=== PATIENT | male | born 1950 | race Caucasian/White ===

== ENCOUNTER 2021-01-07 22:40 | Observation (INO) | payer MEDICARE, OTHER ==
[2021-01-07] MEDS ORDERED: Sodium Chloride 0.9% 500 ML 500 ML IV ONE ×2 (23:00→23:05)
[2021-01-07 23:08] LABS: Hematocrit 34.9 % (42-50); Mean Cell Volume 70.8 fl (78-100); Mean Corpuscular Hemoglobin 20.3 pg (26-32); Mean Corpuscular Hgb Concent. 28.7 g/dl (32-36); Mean Platelet Volume 10.3 fl (7.5-11.0); Platelet Count 372 K/mm3 (150-450); Red Blood Count 4.93 M/mm3 (4.1-5.6); Red Cell Distribution Width 17.8 % (11.5-14.0); White Blood Count 11.5 K/mm3 (4.0-10.5)
--- NOTE | 2021-01-07 23:15 | ERPHSYRPT ---
- History of Present Illness Time Seen by Provider: 01/07/21 22:42 Source: patient Exam Limitations: no limitations Patient Subjective Stated Complaint: My blood sugar is high, I just found out yesterday than I'm diabetic Triage Nursing Assessment: pt c/o blood sugar being high. Dr. Arrieta's office called him yesterday and told him it was over 500 and to go to the ER. Pt did not come to ER. He went to check it tonight and his machine said High. Pt has not been diabetic, just was notified by Dr. Arrieta's office that he's newly diagnosed with diabetes. BS checked here and was 567. Physician History: 70 years old male with history of coronary artery disease status post stenting, congestive heart failure, chronic kidney disease, hypertension, hyperlipidemia presented in the ER with chief complaint of hyperglycemia. Patient reports had routine work-up done before nephrology appointment early next week and was r ecommended to be seen in the ER has his blood sugar has been in 500 and he does not have history of diabetes mellitus and not taking any medications. Denies any chest pain palpitations or shortness of breath. No abdominal pain nausea or vomiting reported. Denies any recent steroid intake. Allergies/Adverse Reactions: No Known Drug Allergies Allergy (Verified 01/07/21 23:01) Home Medications: Atorvastatin Calcium [Lipitor] 10 mg PO HS 03/06/12 [History] Metoprolol Succinate 100 mg [Toprol Xl 100 MG] 100 mg PO QAM 03/06/12 [History] Ramipril 10 mg PO HS 03/06/12 [History] Triamterene/Hydrochlorothiazid [Triamterene-Hctz 75-50 mg Tab] 1 tab PO QAM 03/06/12 [History] PANTOPRAZOLE 40 mg Tablet [Protonix 40MG Tablet] 40 mg PO QAM 03/07/12 [History] Furosemide 40 mg [Lasix 40 MG] 40 mg PO QAM 01/21/13 [History] Potassium Chloride [Micro-K] 10 meq PO QAM 01/21/13 [History] Allopurinol 100 mg [Zyloprim 100 mg] 300 mg PO DAILY 10/25/15 [History] Hx Tetanus, Diphtheria Vaccination/Date Given: Yes Hx Influenza Vaccination/Date Given: No Hx Pneumococcal Vaccination/Date Given: No Immunizations Up to Date: Yes Travel Risk - International Travel Have you traveled outside of the country in past 3 weeks: No - Coronavirus Screening Are you exhibiting any of the following symptoms?: Yes Symptoms: Loss of Taste or Smell, Headaches/Body Aches/Fatigue Close contact with a COVID-19 positive Pt in past 14-21 Days: No - Vaccine Status Have you recieved a Covid-19 vaccination: No - Review of Systems Constitutional: No Symptoms Eyes: No Symptoms Ears, Nose, & Throat: No Symptoms Respiratory: No Symptoms Cardiac: No Symptoms Abdominal/Gastrointestinal: No Symptoms Genitourinary Symptoms: No Symptoms Musculoskeletal: No Symptoms Skin: No Symptoms Neurological: No Symptoms Psychological: No Symptoms Hematologic/Lymphatic: No Symptoms - Past Medical History Pertinent Past Medical History: Yes Neurological History: No Pertinent History ENT History: No Pertinent History Cardiac History: Coronary Artery Disease, High Cholesterol, Hypertension, Myocardial Infarction ([place]), Other Respiratory History: Bronchitis, CHF, COPD, Pneumonia, Sleep Apnea Endocrine Medical History: Diabetes Type II Musculoskeletal History: Arthritis, Fractures GI Medical History: GERD, Polyps History: Renal Disease Psycho-Social History: Depression Male Reproductive Disorders: No Pertinent History - Past Surgical History Past Surgical History: Yes Neuro Surgical History: No Pertinent History Cardiac: Cardiac Catheterization, Cardiac Stent Respiratory: No Pertinent History Gastrointestinal: No Pertinent History Genitourinary: No Pertinent History Musculoskeletal: Other Male Surgical History: No Pertinent History Other Surgical History: 2 heart stents. c4-c5 fusion with plate and cadaver bon e - Social History Smoking Status: Former smoker How long have you smoked: 50years Exposure to second hand smoke: No Drug Use: none Patient Lives Alone: Yes - Nursing Vital Signs Nursing Vital Signs: Initial Vital Signs Temperature 98.3 F 01/07/21 22:47 Pulse Rate 85 01/07/21 22:47 Respiratory Rate 22 01/07/21 22:47 Blood Pressure 110/59 01/07/21 22:47 O2 Sat by Pulse Oximetry 96 01/07/21 22:47 Pain Scale Pain Intensity 0 - Physical Exam General Appearance: no apparent distress, alert Eye Exam: PERRL/EOMI Ears, Nose, Throat Exam: normal ENT inspection, pharynx normal Neck Exam: normal inspection, supple, full range of motion Respiratory Exam: normal breath sounds, lungs clear Cardiovascular Exam: regular rate/rhythm, normal heart sounds Gastrointestinal/Abdomen Exam: soft, No tenderness Back Exam: normal inspection, normal range of motion Extremity Exam: normal inspection, normal range of motion, pelvis stable Neurologic Exam: alert, oriented x 3, cooperative Skin Exam: normal color SpO2 Interpretation: normal SpO2: 96 O2 Delivery: Room Air Ordered Tests: Active Orders 24 hr Category Date Time Status Various Exceptionalities Teacher STAT Care 01/07/21 22:59 Active IV Insertion STAT Care 01/07/21 22:59 Active CBC W DIFF Stat Lab 01/07/21 23:05 Completed CMP Stat Lab 01/07/21 23:05 Completed MAGNESIUM Stat Lab 01/07/21 23:05 Completed Manual Differential NC Stat Lab 01/07/21 23:05 Completed POCT GLUCOSE Stat Lab 01/07/21 22:49 Completed UA W/RFX UR CULTURE Stat Lab 01/07/21 23:24 Completed Medication Summary Discontinued Medications Generic Name Dose Route Start Last Admin Trade Name Freq PRN Reason Stop Dose Admin Sodium Chloride 500 mls @ 500 mls/hr 01/07/21 23:00 01/07/21 23:06 Sodium Chloride 0.9% 500 Ml IV 01/07/21 23:59 500 mls/hr .Q1H ONE Administration Sodium Chloride Confirm 01/07/21 23:05 Sodium Chloride 0.9% 500 Ml Administered 01/07/21 23:06 Dose 500 mls @ ud IV .STK-MED ONE Lab/Rad Data: Laboratory Result Diagrams 01/07/21 23:05 01/07/21 23:05 Laboratory Results 01/07/21 01/07/21 01/07/21 Range/Units 23:24 23:05 23:05 WBC 11.5 H (4.0-10.5) K/mm3 RBC 4.93 (4.1-5.6) M/mm3 Hgb 10.0 L (12.5-18.0) gm/dl Hct 34.9 L (42-50) % MCV 70.8 L (78-100) fl MCH 20.3 L (26-32) pg MCHC 28.7 L (32-36) g/dl RDW 17.8 H (11.5-14.0) % Plt Count 372 (150-450) K/mm3 MPV 10.3 (7.5-11.0) fl Sodium 126 L (137-145) mmol/L Potassium 5.1 D (3.5-5.1) mmol/L Chloride 86 L (98-107) mmol/L Carbon Dioxide 28 (22-30) mmol/L Anion Gap 17.5 H (5-15) MEQ/L BUN 47 H (9-20) mg/dL Creatinine 1.85 H (0.66-1.25) mg/dL Estimated GFR 38.7 ML/MIN Glucose 557 H* (74-106) mg/dL POC Glucometer (50 to 500) mg/dL Calcium 8.6 (8.4-10.2) mg/dL Magnesium 1.7 (1.6-2.3) mg/dL Total Bilirubin 0.80 (0.2-1.3) mg/dL AST 64 H (17-59) U/L ALT 25 (0-50) U/L Alkaline Phosphatase 111 (38-126) U/L Serum Total Protein 7.6 (6.3-8.2) g/dL Albumin 3.9 (3.5-5.0) g/dL Urine Color STRAW (YELLOW) Urine Appearance CLEAR (CLEAR) Urine pH 6.0 (5-6) Ur Specific [place] 1.011 (1.005-1.025) Urine Protein NEGATIVE (Negative) Urine Ketones NEGATIVE (NEGATIVE) Urine Blood NEGATIVE (0-5) Randy/ul Urine Nitrite NEGATIVE (NEGATIVE) Urine Bilirubin NEGATIVE (NEGATIVE) Urine Urobilinogen NEGATIVE (0-1) mg/dL Ur Leukocyte Esterase NEGATIVE (NEGATIVE) Urine WBC (Auto) NONE (0-5) /HPF Urine RBC (Auto) NONE (0-2) /HPF U Epithel Cells (Auto) NONE (FEW) /HPF Urine Bacteria (Auto) NONE SEEN (NEGATIVE) /HPF Urine Culture Reflexed NO (NO) Urine Glucose >=500 (NEGATIVE) mg/dL 01/07/21 Range/Units 22:49 WBC (4.0-10.5) K/mm3 RBC (4.1-5.6) M/mm3 Hgb (12.5-18.0) gm/dl Hct (42-50) % MCV (78-100) fl MCH (26-32) pg MCHC (32-36) g/dl RDW (11.5-14.0) % Plt Count (150-450) K/mm3 MPV (7.5-11.0) fl Sodium (137-145) mmol/L Potassium (3.5-5.1) mmol/L Chloride (98-107) mmol/L Carbon Dioxide (22-30) mmol/L Anion Gap (5-15) MEQ/L BUN (9-20) mg/dL Creatinine (0.66-1.25) mg/dL Estimated GFR ML/MIN Glucose (74-106) mg/dL POC Glucometer 567 H* (50 to 500) mg/dL Calcium (8.4-10.2) mg/dL Magnesium (1.6-2.3) mg/dL Total Bilirubin (0.2-1.3) mg/dL AST (17-59) U/L ALT (0-50) U/L Alkaline Phosphatase (38-126) U/L Serum Total Protein (6.3-8.2) g/dL Albumin (3.5-5.0) g/dL Urine Color (YELLOW) Urine Appearance (CLEAR) Urine pH (5-6) Ur Specific [place] (1.005-1.025) Urine Protein (Negative) Urine Ketones (NEGATIVE) Urine Blood (0-5) Randy/ul Urine Nitrite (NEGATIVE) Urine Bilirubin (NEGATIVE) Urine Urobilinogen (0-1) mg/dL Ur Leukocyte Esterase (NEGATIVE) Urine WBC (Auto) (0-5) /HPF Urine RBC (Auto) (0-2) /HPF U Epithel Cells (Auto) (FEW) /HPF Urine Bacteria (Auto) (NEGATIVE) /HPF Urine Culture Reflexed (NO) Urine Glucose (NEGATIVE) mg/dL - Progress Progress: unchanged Progress Note: 01/08/21 00:36 70 years old is evaluated for hyperglycemia with new onset diabetes mellitus and not taking any medications. Patient is asymptomatic otherwise. Work-up showed blood sugar in 550s with mildly elevated gap and normal bicarb and no ketones in urine. Is given small fluid bolus and 10 units of IV insulin. Patient discussed with Dr. Vargas and is being admitted for new onset diabetes mellitus management, education, of further testing and to be started on some medications. Plan discussed with patient who understand and agrees with it. Discussed with : Ryan Will see patient in: hospital (observation) Counseled pt/family regarding: lab results, diagnosis - Departure Departure Disposition: Observation Clinical Impression: Diabetes mellitus, new onset Condition: Stable Critical Care Time: No Referrals: CHON LINCOLN [Primary Care Provider] -
[2021-01-07 23:22] LABS: ALBUMIN 3.9 g/dL (3.5-5.0); ANION GAP 17.5 MEQ/L (5-15); BILIRUBIN,TOTAL 0.8 mg/dL (0.2-1.3); Calcium 8.6 mg/dL (8.4-10.2); Creatinine 1 1.85 mg/dL (0.66-1.25); EST GLOMERULAR FILTRATION RATE 38.7 ML/MIN; MAGNESIUM 1.7 mg/dL (1.6-2.3); Potassium 5.1 mmol/L (3.5-5.1); Total Protein 7.6 g/dL (6.3-8.2)
[2021-01-07 23:36] LABS: Appearance CLEAR (CLEAR); Bilirubin NEGATIVE (NEGATIVE); Blood NEGATIVE Ery/ul (0-5); Glucose >=500 mg/dL (NEGATIVE); Ketones NEGATIVE (NEGATIVE); Leukocyte Esterase NEGATIVE (NEGATIVE); Nitrite NEGATIVE (NEGATIVE); Protein,Urine Dip NEGATIVE (Negative); Specific Gravity 1.011 (1.005-1.025); Urobilinogen NEGATIVE mg/dL (0-1)
[2021-01-07 23:45] LABS: Bacteria NONE SEEN /HPF (NEGATIVE)
[2021-01-08] MEDS ORDERED: HUMULIN R IV ONE ×3 (00:34→01:37)
[2021-01-08] MEDS ORDERED: HUMULIN R ONE ×2 (00:35→01:39)
[2021-01-08 01:30] LABS: BAND 1 % (0.0-2.0); Basophil 1 % (0.0-1.0); Hypochromia 2+; Lymphocytes 18 % (24-44); Monocyte 8 % (0.0-12.0); Neutrophils 72 % (36.-66.); Platelet Estimate NORMAL (NORMAL); Polychromasia 1+; Total Cells Counted 100
[2021-01-08] MEDS ORDERED: DUONEB 0.5-3 MG/3 ml Neb IH PRN (01:44)
[2021-01-08] MEDS ORDERED: TYLENOL 325 MG PO PRN (01:44)
[2021-01-08] MEDS: HUMALOG SQ PRN ×5 (04:10→20:25)
[2021-01-08] MEDS: Advair Hfa 115/21 Common canister IH SCH ×2 (05:57→18:39)
[2021-01-08 06:04] LABS: Absolute Neutrophil Ct (ANC) 7.37 (1.4-6.9); BASOPHIL % 0.5 % (0.0-0.4); Basophil (Absolute #) 0.05 (0-0.4); Eosinophil % 0.6 % (0.00-5.0); Eosinophil (Absolute #) 0.06 (0-0.5); Hematocrit 34.5 % (42-50); Hemoglobin 9.9 gm/dl (12.5-18.0); Lymphocyte (Absolute #) 2.06 (1.0-4.6); Lymphocytes % 19.7 % (24.0-44.0); Mean Cell Volume 70.8 fl (78-100); Mean Corpuscular Hemoglobin 20.3 pg (26-32); Mean Corpuscular Hgb Concent. 28.7 g/dl (32-36); Mean Platelet Volume 10.2 fl (7.5-11.0); Monocyte (Absolute #) 0.94 (0.0-1.3); Neutrophil % 70.2 % (36.0-66.0); Platelet Count 353 K/mm3 (150-450); Red Blood Count 4.87 M/mm3 (4.1-5.6); Red Cell Distribution Width 17.7 % (11.5-14.0); White Blood Count 10.5 K/mm3 (4.0-10.5)
[2021-01-08 06:34] LABS: Creatinine 1 1.71 mg/dL (0.66-1.25); EST GLOMERULAR FILTRATION RATE 42.4 ML/MIN; Potassium 3.5 mmol/L (3.5-5.1)
[2021-01-08 06:35] LABS: ALBUMIN 3.6 g/dL (3.5-5.0); ANION GAP 12.9 MEQ/L (5-15); BILIRUBIN,TOTAL 0.4 mg/dL (0.2-1.3); Calcium 8.8 mg/dL (8.4-10.2)
[2021-01-08 08:03] LABS: BAND 1 % (0.0-2.0); Eosinophil 3 % (0.00-3.0); Lymphocytes 22 % (24-44); Monocyte 7 % (0.0-12.0); Neutrophils 67 % (36.-66.); Platelet Estimate NORMAL (NORMAL); Total Cells Counted 100
[2021-01-08 08:04] LABS: ANISOCYTOSIS 1+; Hypochromia 1+
[2021-01-08] MEDS: PROTONIX 40 MG IV IV SCH (09:47)
[2021-01-08] MEDS: BUMEX 1 MG PO SCH (11:26)
[2021-01-08] MEDS: hydroDIURIL 25 MG PO SCH (11:27)
[2021-01-08] MEDS: Toprol Xl 50 MG PO SCH (11:27)
[2021-01-08] MEDS: Aldactone 25 MG PO SCH (11:27)
[2021-01-08] MEDS: NORVASC 5 MG PO SCH (11:28)
[2021-01-08] MEDS: Glucotrol Xl 10 MG PO SCH ×2 (11:28→17:17)
[2021-01-08] MEDS ORDERED: MEDICATION INTERVENTION MC SCH ×2 (11:45)
--- NOTE | 2021-01-08 14:09 | PCM.HP ---
History of Present Illness - Chief Complaint Chief Complaint: New Onset Diabete Mellitus. History of Present Illness: is a 70 year old male pt of Dr. Monae with chronic renal failure, CAD with stents, CHF, HTN , COPD (on 3L O2) and hyperlipidemia who was admitted through ER with new dx of diabetes and BS 567. He had routine labs for an upcoming appointment with Dr. Arrieta last week, and pt was called with BS > 500. He did not go to ER at that time; went yesterday after a home meter read "HI." Has been having thirst/polyuria lately. No weight loss. Dizziness with standing. - Review of Systems Respiratory: Short Of Breath (chronic) Cardiac: Edema (chronic) Neurological: Dizziness, Parasthesia (tingling legs bilat for quite some time, he's unsure if it's 1 year; worse lately.) Psychological: Depression, No Suicidal Ideations, No Homicidal Ideations Medications & Allergies Home Medications: Home Medication List Amlodipine Besylate 5 mg [Norvasc 5 mg] 5 mg PO DAILY 01/08/21 [History Confirmed 01/08/21] Atorvastatin Calcium 10 mg PO HS 01/08/21 [History Confirmed 01/08/21] Bumetanide 2 mg PO BID 01/08/21 [History Confirmed 01/08/21] Fluticasone/Umeclidin/Vilanter [Trelegy Ellipta 100-62.5-25] 1 puff IH DAILY 01/08/21 [History Confirmed 01/08/21] Metoprolol Succinate 50 mg [Toprol Xl 50 MG] 50 mg PO DAILY 01/08/21 [History Confirmed 01/08/21] Sildenafil Citrate [Sildenafil] 20 mg PO DAILY 01/08/21 [History Confirmed 01/08/21] Spironolact/Hydrochlorothiazid [Spironolactone-Hctz 25-25 Tab] 1 tablet PO DAILY 01/08/21 [History Confirmed 01/08/21] Allergies/Adverse Reactions: Allergies Allergy/AdvReac Type Severity Reaction Status Date / Time No Known Drug Allergies Allergy Verified 01/07/21 23:01 - Past Medical History Past Medical History: Yes Neurological History: No Pertinent History ENT History: No Pertinent History Cardiac History: Congestive Heart Failure, Coronary Artery Disease, Hypertension, Myocardial Infarction ([place]) Respiratory History: Asthma, CHF, COPD, Pneumonia Endocrine Medical History: Diabetes Type II Musculoskelatal History: Arthritis GI Medical History: Diverticulitis, GERD, Polyps History: Renal Disease Pyscho-Social History: Anxiety, Depression Male Reproductive Disorders: No Pertinent History - Past Surgical History Past Surgical History: Yes Neuro Surgical History: No Pertinent History Cardiac History: Cardiac Catheterization, Cardiac Stent Respiratory Surgery: No Pertinent History GI Surgical History: No Pertinent History Genitourinary Surgical Hx: No Pertinent History Musculskeletal Surgical Hx: No Pertinent History Male Surgical History: No Pertinent History Other Surgical History: 2 heart stents. c4-c5 fusion with plate and cadaver bone - Social History Smoking Status: Former smoker How long have you smoked: 50years Exposure to second hand smoke: No Alcohol: None Drug Use: none - Physical Exam Vital Signs: Vital Signs - 24 hr Temp Pulse Resp BP Pulse Ox 01/08/21 11:29 97.6 F 93 H 16 127/69 93 L 01/08/21 07:08 97.9 F 77 16 116/56 92 L 01/08/21 05:55 71 20 95 01/08/21 04:05 95/45 01/08/21 04:00 97.5 F 80 20 119/57 98 01/08/21 02:45 77 18 95 01/08/21 02:36 97.9 F 80 20 117/56 96 01/08/21 01:00 77 20 110/61 99 01/08/21 00:37 96 01/08/21 00:00 78 20 102/53 99 01/07/21 22:47 98.3 F 85 22 110/59 96 General Appearance: no apparent distress, alert, obese Neurologic Exam: oriented x 3, cooperative Results - Labs Lab/Micro Results: Lab Results-Last 24 Hours 01/07/21 01/07/21 01/07/21 Range/Units 22:49 23:05 23:05 WBC 11.5 H (4.0-10.5) K/mm3 RBC 4.93 (4.1-5.6) M/mm3 Hgb 10.0 L (12.5-18.0) gm/dl Hct 34.9 L (42-50) % MCV 70.8 L (78-100) fl MCH 20.3 L (26-32) pg MCHC 28.7 L (32-36) g/dl RDW 17.8 H (11.5-14.0) % Plt Count 372 (150-450) K/mm3 MPV 10.3 (7.5-11.0) fl Gran % (36.0-66.0) % Eos # (Auto) (0-0.5) Absolute Lymphs (auto) (1.0-4.6) Absolute Monos (auto) (0.0-1.3) Lymphocytes % (24.0-44.0) % Monocytes % (0.0-12.0) % Eosinophils % (0.00-5.0) % Basophils % (0.0-0.4) % Absolute Granulocytes (1.4-6.9) Segmented Neutrophils 72 H (36.-66.) % Band Neutrophils 1 (0.0-2.0) % Lymphocytes (Manual) 18 L (24-44) % Monocytes (Manual) 8 (0.0-12.0) % Eosinophils (Manual) (0.00-3.0) % Basophils (Manual) 1 (0.0-1.0) % Basophils # (0-0.4) Hypochromia 2+ Platelet Estimate NORMAL (NORMAL) RBC Morphology ABNORMAL Polychromasia 1+ Anisocytosis Sodium 126 L (137-145) mmol/L Potassium 5.1 D (3.5-5.1) mmol/L Chloride 86 L (98-107) mmol/L Carbon Dioxide 28 (22-30) mmol/L Anion Gap 17.5 H (5-15) MEQ/L BUN 47 H (9-20) mg/dL Creatinine 1.85 H (0.66-1.25) mg/dL Estimated GFR 38.7 ML/MIN Glucose 557 H* (74-106) mg/dL POC Glucometer 567 H* (50 to 500) mg/dL Hemoglobin A1c (4.5-6.0) % Calcium 8.6 (8.4-10.2) mg/dL Magnesium 1.7 (1.6-2.3) mg/dL Total Bilirubin 0.80 (0.2-1.3) mg/dL AST 64 H (17-59) U/L ALT 25 (0-50) U/L Alkaline Phosphatase 111 (38-126) U/L Serum Total Protein 7.6 (6.3-8.2) g/dL Albumin 3.9 (3.5-5.0) g/dL Urine Color (YELLOW) Urine Appearance (CLEAR) Urine pH (5-6) Ur Specific [place] (1.005-1.025) Urine Protein (Negative) Urine Ketones (NEGATIVE) Urine Blood (0-5) Randy/ul Urine Nitrite (NEGATIVE) Urine Bilirubin (NEGATIVE) Urine Urobilinogen (0-1) mg/dL Ur Leukocyte Esterase (NEGATIVE) Urine WBC (Auto) (0-5) /HPF Urine RBC (Auto) (0-2) /HPF U Epithel Cells (Auto) (FEW) /HPF Urine Bacteria (Auto) (NEGATIVE) /HPF Urine Culture Reflexed (NO) Urine Glucose (NEGATIVE) mg/dL SARS-CoV-2 (PCR) (NEGATIVE) 01/07/21 01/08/21 01/08/21 Range/Units 23:24 00:00 00:50 WBC (4.0-10.5) K/mm3 RBC (4.1-5.6) M/mm3 Hgb (12.5-18.0) gm/dl Hct (42-50) % MCV (78-100) fl MCH (26-32) pg MCHC (32-36) g/dl RDW (11.5-14.0) % Plt Count (150-450) K/mm3 MPV (7.5-11.0) fl Gran % (36.0-66.0) % Eos # (Auto) (0-0.5) Absolute Lymphs (auto) (1.0-4.6) Absolute Monos (auto) (0.0-1.3) Lymphocytes % (24.0-44.0) % Monocytes % (0.0-12.0) % Eosinophils % (0.00-5.0) % Basophils % (0.0-0.4) % Absolute Granulocytes (1.4-6.9) Segmented Neutrophils (36.-66.) % Band Neutrophils (0.0-2.0) % Lymphocytes (Manual) (24-44) % Monocytes (Manual) (0.0-12.0) % Eosinophils (Manual) (0.00-3.0) % Basophils (Manual) (0.0-1.0) % Basophils # (0-0.4) Hypochromia Platelet Estimate (NORMAL) RBC Morphology Polychromasia Anisocytosis Sodium (137-145) mmol/L Potassium (3.5-5.1) mmol/L Chloride (98-107) mmol/L Carbon Dioxide (22-30) mmol/L Anion Gap (5-15) MEQ/L BUN (9-20) mg/dL Creatinine (0.66-1.25) mg/dL Estimated GFR ML/MIN Glucose (74-106) mg/dL POC Glucometer (50 to 500) mg/dL Hemoglobin A1c > 14.00 H (4.5-6.0) % Calcium (8.4-10.2) mg/dL Magnesium (1.6-2.3) mg/dL Total Bilirubin (0.2-1.3) mg/dL AST (17-59) U/L ALT (0-50) U/L Alkaline Phosphatase (38-126) U/L Serum Total Protein (6.3-8.2) g/dL Albumin (3.5-5.0) g/dL Urine Color STRAW (YELLOW) Urine Appearance CLEAR (CLEAR) Urine pH 6.0 (5-6) Ur Specific [place] 1.011 (1.005-1.025) Urine Protein NEGATIVE (Negative) Urine Ketones NEGATIVE (NEGATIVE) Urine Blood NEGATIVE (0-5) Randy/ul Urine Nitrite NEGATIVE (NEGATIVE) Urine Bilirubin NEGATIVE (NEGATIVE) Urine Urobilinogen NEGATIVE (0-1) mg/dL Ur Leukocyte Esterase NEGATIVE (NEGATIVE) Urine WBC (Auto) NONE (0-5) /HPF Urine RBC (Auto) NONE (0-2) /HPF U Epithel Cells (Auto) NONE (FEW) /HPF Urine Bacteria (Auto) NONE SEEN (NEGATIVE) /HPF Urine Culture Reflexed NO (NO) Urine Glucose >=500 (NEGATIVE) mg/dL SARS-CoV-2 (PCR) NEGATIVE (NEGATIVE) 01/08/21 01/08/21 01/08/21 Range/Units 01:33 03:22 05:24 WBC (4.0-10.5) K/mm3 RBC (4.1-5.6) M/mm3 Hgb (12.5-18.0) gm/dl Hct (42-50) % MCV (78-100) fl MCH (26-32) pg MCHC (32-36) g/dl RDW (11.5-14.0) % Plt Count (150-450) K/mm3 MPV (7.5-11.0) fl Gran % (36.0-66.0) % Eos # (Auto) (0-0.5) Absolute Lymphs (auto) (1.0-4.6) Absolute Monos (auto) (0.0-1.3) Lymphocytes % (24.0-44.0) % Monocytes % (0.0-12.0) % Eosinophils % (0.00-5.0) % Basophils % (0.0-0.4) % Absolute Granulocytes (1.4-6.9) Segmented Neutrophils (36.-66.) % Band Neutrophils (0.0-2.0) % Lymphocytes (Manual) (24-44) % Monocytes (Manual) (0.0-12.0) % Eosinophils (Manual) (0.00-3.0) % Basophils (Manual) (0.0-1.0) % Basophils # (0-0.4) Hypochromia Platelet Estimate (NORMAL) RBC Morphology Polychromasia Anisocytosis Sodium (137-145) mmol/L Potassium (3.5-5.1) mmol/L Chloride (98-107) mmol/L Carbon Dioxide (22-30) mmol/L Anion Gap (5-15) MEQ/L BUN (9-20) mg/dL Creatinine (0.66-1.25) mg/dL Estimated GFR ML/MIN Glucose (74-106) mg/dL POC Glucometer 471 H 414 H 334 H (50 to 500) mg/dL Hemoglobin A1c (4.5-6.0) % Calcium (8.4-10.2) mg/dL Magnesium (1.6-2.3) mg/dL Total Bilirubin (0.2-1.3) mg/dL AST (17-59) U/L ALT (0-50) U/L Alkaline Phosphatase (38-126) U/L Serum Total Protein (6.3-8.2) g/dL Albumin (3.5-5.0) g/dL Urine Color (YELLOW) Urine Appearance (CLEAR) Urine pH (5-6) Ur Specific [place] (1.005-1.025) Urine Protein (Negative) Urine Ketones (NEGATIVE) Urine Blood (0-5) Randy/ul Urine Nitrite (NEGATIVE) Urine Bilirubin (NEGATIVE) Urine Urobilinogen (0-1) mg/dL Ur Leukocyte Esterase (NEGATIVE) Urine WBC (Auto) (0-5) /HPF Urine RBC (Auto) (0-2) /HPF U Epithel Cells (Auto) (FEW) /HPF Urine Bacteria (Auto) (NEGATIVE) /HPF Urine Culture Reflexed (NO) Urine Glucose (NEGATIVE) mg/dL SARS-CoV-2 (PCR) (NEGATIVE) 01/08/21 01/08/21 01/08/21 Range/Units 05:27 05:27 07:25 WBC 10.5 (4.0-10.5) K/mm3 RBC 4.87 (4.1-5.6) M/mm3 Hgb 9.9 L (12.5-18.0) gm/dl Hct 34.5 L (42-50) % MCV 70.8 L (78-100) fl MCH 20.3 L (26-32) pg MCHC 28.7 L (32-36) g/dl RDW 17.7 H (11.5-14.0) % Plt Count 353 (150-450) K/mm3 MPV 10.2 (7.5-11.0) fl Gran % 70.2 H (36.0-66.0) % Eos # (Auto) 0.06 (0-0.5) Absolute Lymphs (auto) 2.06 (1.0-4.6) Absolute Monos (auto) 0.94 (0.0-1.3) Lymphocytes % 19.7 L (24.0-44.0) % Monocytes % 9.0 (0.0-12.0) % Eosinophils % 0.6 (0.00-5.0) % Basophils % 0.5 (0.0-0.4) % Absolute Granulocytes 7.37 H (1.4-6.9) Segmented Neutrophils 67 H (36.-66.) % Band Neutrophils 1 (0.0-2.0) % Lymphocytes (Manual) 22 L (24-44) % Monocytes (Manual) 7 (0.0-12.0) % Eosinophils (Manual) 3 (0.00-3.0) % Basophils (Manual) (0.0-1.0) % Basophils # 0.05 (0-0.4) Hypochromia 1+ Platelet Estimate NORMAL (NORMAL) RBC Morphology ABNORMAL Polychromasia Anisocytosis 1+ Sodium 128 L (137-145) mmol/L Potassium 3.5 D (3.5-5.1) mmol/L Chloride 88 L (98-107) mmol/L Carbon Dioxide 31 H (22-30) mmol/L Anion Gap 12.9 (5-15) MEQ/L BUN 40 H (9-20) mg/dL Creatinine 1.71 H (0.66-1.25) mg/dL Estimated GFR 42.4 ML/MIN Glucose 333 H (74-106) mg/dL POC Glucometer 290 H (50 to 500) mg/dL Hemoglobin A1c (4.5-6.0) % Calcium 8.8 (8.4-10.2) mg/dL Magnesium (1.6-2.3) mg/dL Total Bilirubin 0.40 (0.2-1.3) mg/dL AST 20 (17-59) U/L ALT 20 (0-50) U/L Alkaline Phosphatase 111 (38-126) U/L Serum Total Protein 7.0 (6.3-8.2) g/dL Albumin 3.6 (3.5-5.0) g/dL Urine Color (YELLOW) Urine Appearance (CLEAR) Urine pH (5-6) Ur Specific [place] (1.005-1.025) Urine Protein (Negative) Urine Ketones (NEGATIVE) Urine Blood (0-5) Randy/ul Urine Nitrite (NEGATIVE) Urine Bilirubin (NEGATIVE) Urine Urobilinogen (0-1) mg/dL Ur Leukocyte Esterase (NEGATIVE) Urine WBC (Auto) (0-5) /HPF Urine RBC (Auto) (0-2) /HPF U Epithel Cells (Auto) (FEW) /HPF Urine Bacteria (Auto) (NEGATIVE) /HPF Urine Culture Reflexed (NO) Urine Glucose (NEGATIVE) mg/dL SARS-CoV-2 (PCR) (NEGATIVE) 01/08/21 Range/Units 11:27 WBC (4.0-10.5) K/mm3 RBC (4.1-5.6) M/mm3 Hgb (12.5-18.0) gm/dl Hct (42-50) % MCV (78-100) fl MCH (26-32) pg MCHC (32-36) g/dl RDW (11.5-14.0) % Plt Count (150-450) K/mm3 MPV (7.5-11.0) fl Gran % (36.0-66.0) % Eos # (Auto) (0-0.5) Absolute Lymphs (auto) (1.0-4.6) Absolute Monos (auto) (0.0-1.3) Lymphocytes % (24.0-44.0) % Monocytes % (0.0-12.0) % Eosinophils % (0.00-5.0) % Basophils % (0.0-0.4) % Absolute Granulocytes (1.4-6.9) Segmented Neutrophils (36.-66.) % Band Neutrophils (0.0-2.0) % Lymphocytes (Manual) (24-44) % Monocytes (Manual) (0.0-12.0) % Eosinophils (Manual) (0.00-3.0) % Basophils (Manual) (0.0-1.0) % Basophils # (0-0.4) Hypochromia Platelet Estimate (NORMAL) RBC Morphology Polychromasia Anisocytosis Sodium (137-145) mmol/L Potassium (3.5-5.1) mmol/L Chloride (98-107) mmol/L Carbon Dioxide (22-30) mmol/L Anion Gap (5-15) MEQ/L BUN (9-20) mg/dL Creatinine (0.66-1.25) mg/dL Estimated GFR ML/MIN Glucose (74-106) mg/dL POC Glucometer 434 H (50 to 500) mg/dL Hemoglobin A1c (4.5-6.0) % Calcium (8.4-10.2) mg/dL Magnesium (1.6-2.3) mg/dL Total Bilirubin (0.2-1.3) mg/dL AST (17-59) U/L ALT (0-50) U/L Alkaline Phosphatase (38-126) U/L Serum Total Protein (6.3-8.2) g/dL Albumin (3.5-5.0) g/dL Urine Color (YELLOW) Urine Appearance (CLEAR) Urine pH (5-6) Ur Specific [place] (1.005-1.025) Urine Protein (Negative) Urine Ketones (NEGATIVE) Urine Blood (0-5) Randy/ul Urine Nitrite (NEGATIVE) Urine Bilirubin (NEGATIVE) Urine Urobilinogen (0-1) mg/dL Ur Leukocyte Esterase (NEGATIVE) Urine WBC (Auto) (0-5) /HPF Urine RBC (Auto) (0-2) /HPF U Epithel Cells (Auto) (FEW) /HPF Urine Bacteria (Auto) (NEGATIVE) /HPF Urine Culture Reflexed (NO) Urine Glucose (NEGATIVE) mg/dL SARS-CoV-2 (PCR) (NEGATIVE) Accuchecks Date 01/08/21 Date 01/08/21 Time 11:30 Time 07:29 - Other Procedures and Tests Respiratory Therapy 01/08/21 01:44 Oxygen Nasal Cannula 3 lpm 01/08/21 02:56 Respiratory Therapy Assessment DAILY Assessment/Plan (1) Diabetes mellitus, new onset Current Visit: Yes Status: Acute Assessment & Plan: A1c is >14. I discussed that with his BS this high, he will probably need to remain on insulin. He is resistant to the idea. Did mention an insulin pump as an alternative to giving himself injections. Would like dietary to provide consultation about diabetic diet. He is currently on sliding scale, low dose. Will see how much he requires over the next 24 hours, then could use 1/2 of that as a daily lantus dose. I went ahead and started po sulfonylurea as I think sending him home on insulin may be difficult due to his resistance. Code(s): E11.9 - TYPE 2 DIABETES MELLITUS WITHOUT COMPLICATIONS (2) Chronic renal failure Current Visit: Yes Status: Chronic Qualifiers: Chronic kidney disease stage: stage 3 (moderate) Chronic kidney disease stage 3 subtype: stage 3b (GFR 30-44) Qualified Code(s): N18.32 - Chronic kidney disease, stage 3b (3) COPD (chronic obstructive pulmonary disease) Current Visit: Yes Status: Chronic Qualifiers: COPD type: unspecified COPD Qualified Code(s): J44.9 - Chronic obstructive pulmonary disease, unspecified (4) CAD (coronary artery disease) Current Visit: Yes Status: Chronic Qualifiers: Coronary Disease-Associated Artery/Lesion type: [place] artery [place] vs. transplanted heart: [place] heart Associated angina: without angina Qualified Code(s): I25.10 - Atherosclerotic heart disease of [place] coronary artery without angina pectoris Code(s): I25.10 - ATHSCL HEART DISEASE OF [place] CORONARY ARTERY W/O ANG PCTRS (5) CHF (congestive heart failure) Current Visit: Yes Status: Chronic Qualifiers: Heart failure type: systolic Heart failure chronicity: chronic Qualified Code(s): I50.22 - Chronic systolic (congestive) heart failure Code(s): I50.9 - HEART FAILURE, UNSPECIFIED (6) HTN (hypertension) Current Visit: Yes Status: Chronic Qualifiers: Hypertension type: primary hypertension Qualified Code(s): I10 - Essential (primary) hypertension Code(s): I10 - ESSENTIAL (PRIMARY) HYPERTENSION (7) Hyperlipidemia Current Visit: Yes Status: Chronic Qualifiers: Hyperlipidemia type: unspecified Qualified Code(s): E78.5 - Hyperlipidemia, unspecified Assessment & Plan: Will check lipid panel in a.m. Code(s): E78.5 - HYPERLIPIDEMIA, UNSPECIFIED (8) Chronic hypoxemic respiratory failure Current Visit: Yes Status: Chronic Assessment & Plan: Pt says he is on 3L O2 at home.
[2021-01-08] MEDS ORDERED: NON-FORMULARY ITEM (Bumetanide [Bumetanide] 2 MG Tablet) PO SCH (22:00)
[2021-01-09] MEDS: BUMEX 1 MG PO SCH ×2 (00:35→09:16)
[2021-01-09] MEDS: Advair Hfa 115/21 Common canister IH SCH ×2 (07:21→18:08)
[2021-01-09] MEDS: HUMALOG SQ PRN ×4 (08:17→20:36)
[2021-01-09] MEDS: Glucotrol Xl 10 MG PO SCH ×2 (08:17→20:05)
[2021-01-09] MEDS: PROTONIX 40 MG IV IV SCH (09:15)
[2021-01-09] MEDS: NORVASC 5 MG PO SCH (09:16)
[2021-01-09] MEDS: hydroDIURIL 25 MG PO SCH (09:16)
[2021-01-09] MEDS: Toprol Xl 50 MG PO SCH (09:16)
[2021-01-09] MEDS: Aldactone 25 MG PO SCH (09:16)
[2021-01-09] MEDS ORDERED: NON-FORMULARY ITEM (Sildenafil Citrate [Sildenafil Citrate] 20 MG Tablet) PO SCH (10:00)
[2021-01-09] MEDS ORDERED: NON-FORMULARY ITEM (Fluticasone/Umeclidin/Vilanter [Trelegy Ellipta 100-62.5-25] 1 EACH Bl IH SCH (10:00)
--- NOTE | 2021-01-09 13:17 | HP ---
CHIEF COMPLAINT: Elevated blood sugars. HISTORY OF PRESENT ILLNESS: The patient is a 70-year-old white male patient who presented to the emergency room after being called by his blending kettle tender and was told that his sugars were 567. The patient has not seen me in the last three years but has been following Dr. Arrieta over that time frame to get reduction in his glomerular filtration rate. The patient previously had no knowledge of being diabetic. The last lab three years ago showed his sugar was 108 fasting. The patient reports he just has not been feeling well over the past several months. He does have a great amount of thirst and urine output on a regular basis. PAST MEDICAL/SURGICAL HISTORY: He also has previous history of hypertension, hyperlipidemia and chronic obstructive pulmonary disease. He previously had two heart stents and C4-5 fusion with plates and cadaver bone. HOME MEDICATIONS: Amlodipine 5 mg daily, atorvastatin 10 mg daily, Bumex 2 mg twice a day, Trelegy Ellipta 1 puff daily, metoprolol XL 50 mg daily, Sildenafil 20 mg,. Spironolactone 25 mg daily. ALLERGIES: NKDA. PHYSICAL EXAMINATION: The patient appears to be in good state of health presently. His most recent vital signs are not on the chart record for review. HEENT: Normocephalic, atraumatic. Pupils equal round reactive to light. Extraocular movements intact. Oropharynx is slightly dry. NECK: Supple without lymphadenopathy, thyromegaly or JVD. CHEST: Clear to auscultation bilaterally. HEART: Regular rate and rhythm without murmurs, rubs or gallops. ABDOMEN: Soft. No palpable masses. EXTREMITIES: Without cyanosis, clubbing or edema. NEUROLOGIC: The patient is alert and oriented x3 with no focal deficits. LAB DATA AND TESTS: The patient's lab studies in the emergency room showed white count of 11.5, hemoglobin 10.0 with hypochromic microcytic indices and PLT count of 372,000. His urine specific gravity was 1.011 and was otherwise normal including a glucose that has been luis f out on her chart record. A1C was over 14. ASSESSMENT: A patient with newly diagnosed diabetes mellitus type II. He has been placed initially on insulin. His sugar was down to 300-plus this morning. He will be staying for diabetic teaching, 1800 calorie ADA diet, will start him on Metformin 500 mg twice a day. If his blending kettle tender has no objections we will place him on moderate dose of sliding scale coverage with Accu-Chek's every 4 hours until his sugars are down into better range. Will continue his usual home medications otherwise.
[2021-01-09] MEDS ORDERED: Sodium Chloride 0.9% 1000 ML 1,000 ML IV SCH (18:00)
[2021-01-09] MEDS: Glucophage 500 MG PO SCH (18:16)
[2021-01-09] MEDS: Glucotrol 5 MG PO SCH (18:17)
[2021-01-09] MEDS: Klor Con 10 MEQ PO SCH (21:51)
[2021-01-10] MEDS: NON-FORMULARY ITEM PO SCH ×2 (00:13→08:51)
[2021-01-10] MEDS: HUMALOG SQ PRN ×4 (00:17→13:07)
[2021-01-10 05:26] LABS: ALBUMIN 3.7 g/dL (3.5-5.0); ANION GAP 10.3 MEQ/L (5-15); BILIRUBIN,TOTAL 0.4 mg/dL (0.2-1.3); Calcium 9.2 mg/dL (8.4-10.2); Creatinine 1 1.78 mg/dL (0.66-1.25); EST GLOMERULAR FILTRATION RATE 40.5 ML/MIN; Potassium 3.1 mmol/L (3.5-5.1); Total Protein 7.1 g/dL (6.3-8.2)
[2021-01-10] MEDS: Advair Hfa 115/21 Common canister IH SCH (07:51)
[2021-01-10] MEDS: Glucotrol 5 MG PO SCH (08:47)
[2021-01-10] MEDS: Glucophage 500 MG PO SCH (08:47)
[2021-01-10] MEDS: Toprol Xl 50 MG PO SCH (08:47)
[2021-01-10] MEDS: hydroDIURIL 25 MG PO SCH (08:50)
[2021-01-10] MEDS: NORVASC 5 MG PO SCH (08:50)
[2021-01-10] MEDS: Klor Con 10 MEQ PO SCH (08:51)
[2021-01-10] MEDS: Aldactone 25 MG PO SCH (08:51)
[2021-01-10] MEDS: PROTONIX 40 MG IV IV SCH (08:52)
--- NOTE | 2021-01-10 09:50 | CONS ---
CONSULT DATE: 01/09/2021 HISTORY: Dean Krishnamurthy is a very pleasant 70-year-old gentleman who has history of chronic kidney disease stage III. His baseline creatinine is around 1.5 to 1.7 mg%. In fact recently he had acute kidney injury and was thought to have osmotic diuresis. He had routine tests done and was noted to have a sugar of 567. He was sent to the emergency room. He was diagnosed with newly diagnosed diabetes. His blood sugar has been hovering more than 300 to 400. The patient still reports that he has not feeling well over the past several months. He was very thirsty and was having increase in urine output. He was on Bumex 2 mg twice a day which had been reduced recently. He was admitted to the hospital. A renal consultation was called for evaluation of renal dysfunction and to see whether he is a candidate for Metformin therapy or not. REVIEW OF SYSTEMS: The patient denies any nausea, vomiting or diarrhea. Excessive urination was present. Weakness was present. No chest pain. No abdominal pain. The leg swelling is stable. No dysuria. Frequent urination was present. No fall, trauma, focal weaknesses. All systems were reviewed in detail and pertinent mentioned here and in history of present illness and the rest were negative. PAST MEDICAL HISTORY: Diabetes mellitus type II recently diagnosed. Chronic obstructive pulmonary disease. Dyslipidemia. Chronic kidney disease stage 3. Low back pain. Coronary artery disease. Hypertension. Hyperkalemia. Chronic leg edema. PAST SURGICAL HISTORY: No major surgeries in the recent past. MEDICATIONS: Home medications included amlodipine 5 mg daily, atorvastatin 10 mg daily. Bumex was reduced recently, Trelegy Ellipta, metoprolol, sildenafil, Spironolactone. In hospital medications were reviewed. ALLERGIES: NKDA. PHYSICAL EXAMINATION: Reveals a gentleman lying upright on intranasal oxygen at baseline. Vital signs were reviewed. HEENT: Normocephalic, atraumatic, pink conjunctivae, nonicteric sclerae. NECK: Supple. No JVD. CHEST: Clear to auscultation. No distress. CVS: S1, S2 normal. No rub or gallop. ABDOMEN: Soft, nontender. No organomegaly. EXTREMITIES: No cyanosis or clubbing. Trace to +1 edema bilaterally. SKIN: No skin rash seen. NEUROLOGIC: Alert, awake, oriented x3. LAB DATA AND TESTS: Labs were reviewed from yesterday. No labs available today. Creatinine 1.7, glucose 333, sodium 128, potassium 3.5. ASSESSMENT: 1) Chronic kidney disease stage 3B. Creatinine of 1.7 is near baseline. Osmotic component of acute kidney injury may have been present at admission when peak creatinine was 1.85 this was because of osmotic diuresis. Renal function steadily improved. Should remain stabilized or may improve further depending on blood sugar control. I doubt any major evidence of acute kidney injury. Okay to restart Metformin. 2) Edema, stable. Given presence of osmotic diuresis we will reduce Bumex to 2 mg daily instead of b.i.d. 3) Diabetes mellitus type II (recently diagnosed). Excellent candidate for Farxiga to prevent decline in renal dysfunction, start 10 mg daily. Okay to continue Metformin. Reduce glipizide to give rest to the pancreas at 5 mg b.i.d., continue Humalog coverage. Start normal saline at 50 ml/hour. 4) Pulmonary hypertension on sildenafil 20 mg daily. 5) Hypertension well controlled, continue amlodipine 5 mg daily and Spironolactone/hydrochlorothiazide 25/25 mg daily. All questions answered.
[2021-01-10] MEDS ORDERED: BUMEX 1 MG PO SCH (10:00)
[2021-01-10 12:15] VITALS: BP 126/58; PULSE 88; O2SAT 95
== END 2021-01-10 14:16 | disposition home or self-care (01) ==
LOC: ED 22:40 → MED SURG 01-08 01:41
PROVIDERS: ADMIT Family Medicine; ATTEND Family Medicine
DX: I13.0 Hypertensive heart and chronic kidney disease with heart failure and stage 1 through stage 4 chronic kidney disease, or unspecified chronic kidney disease (principal); E11.22 Type 2 diabetes mellitus with diabetic chronic kidney disease; I50.9 Heart failure, unspecified; N18.32 Chronic kidney disease, stage 3b; I27.20 Pulmonary hypertension, unspecified; J96.11 Chronic respiratory failure with hypoxia; R42 Dizziness and giddiness; J44.9 Chronic obstructive pulmonary disease, unspecified; I25.10 Atherosclerotic heart disease of native coronary artery without angina pectoris; R20.2 Paresthesia of skin; E78.5 Hyperlipidemia, unspecified; Z79.899 Other long term (current) drug therapy; Z20.822 Contact with and (suspected) exposure to COVID-19
CPT/HCPCS: 36000; 36415; 80053; 81001; 82947; 83036; 83735; 85025; 93041; 93268; 94640; 94760; 96374; 96375; 99285; G0378; U0003; J1815; J1817; A9270-GY

== ENCOUNTER 2021-11-09 20:49 | Inpatient (IN) | payer MEDICARE, OTHER ==
[2021-11-09] MEDS ORDERED: DUONEB 0.5-3 MG/3 ml Neb IH ONE ×2 (20:57→21:00)
[2021-11-09] MEDS ORDERED: solu-MEDROL 125 MG, Sterile H2O 10 ml 2 ML IV ONE ×2 (21:06)
--- NOTE | 2021-11-09 21:12 | ERPHSYRPT ---
- History of Present Illness Time Seen by Provider: 11/09/21 21:00 Source: patient Exam Limitations: no limitations Patient Subjective Stated Complaint: pt states he has been short of breath for 6 days approx. states he feels worse today. pt has no pain just states SOB Triage Nursing Assessment: pt is alert and oriented, answers questions correct ly. pt is unable to lay flat, takes short, shallow breaths, sats are 80% on 3l O2 N.C, respiratory therapy in room to assess. Physician History: Patient is a 71-year-old male with history of COPD on home O2, congestive heart failure, cardiac stent, diabetes, chronic renal insufficiency presents to our ED with a 6-day history of progressive shortness of breath. Patient also has bilateral lower extremity pitting edema which he states is chronic. Shortness of breath has been progressive. Patient states that has gotten significantly worse over the past 24 hours. Upon arrival patient was hypoxic at 80% on 3 L. Patient normally uses 3 L at home. Patient denies pain. No nausea vomiting or diaphoresis. No diarrhea. No rash. Symptoms are progressive. Symptoms are moderate in intensity. Exertion worsens symptoms. Lying flat worsens symptoms. Patient voices no other complaints concerns at this time. Portions of this note were created with voice recognition technology. There may be grammatical, spelling, punctuation or sound alike errors Timing/Duration: day(s) (6 days) Activities at Onset: none Severity of Dyspnea-Max: moderate Severity of Dyspnea-Current: mild Possible Cause: no prior episodes Modifying Factors: Improves With: activity, lying down Associated Symptoms: ankle swelling, No chest pain/discomfort Allergies/Adverse Reactions: No Known Drug Allergies Allergy (Verified 01/07/21 23:01) Home Medications: Amlodipine Besylate 5 mg [Norvasc 5 mg] 5 mg PO DAILY 01/08/21 [History] Atorvastatin Calcium 10 mg PO HS 01/08/21 [History] Bumetanide 2 mg PO BID 01/08/21 [History] Fluticasone/Umeclidin/Vilanter [Trelegy Ellipta 100-62.5-25] 1 puff IH DAILY 01/08/21 [History] Metoprolol Succinate 50 mg [Toprol Xl 50 MG] 50 mg PO DAILY 01/08/21 [History] Sildenafil Citrate [Sildenafil] 20 mg PO DAILY 01/08/21 [History] Spironolact/Hydrochlorothiazid [Spironolactone-Hctz 25-25 Tab] 1 tablet PO DAILY 01/08/21 [History] Hx Tetanus, Diphtheria Vaccination/Date Given: Yes Hx Influenza Vaccination/Date Given: No Hx Pneumococcal Vaccination/Date Given: No Travel Risk - International Travel Have you traveled outside of the country in past 3 weeks: No - Coronavirus Screening Are you exhibiting any of the following symptoms?: No Close contact with a COVID-19 positive Pt in past 14-21 Days: No - Vaccine Status Have you recieved a Covid-19 vaccination: No - Review of Systems Constitutional: No Symptoms, No Fever, No Chills Eyes: No Symptoms Ears, Nose, & Throat: No Symptoms Respiratory: No Symptoms, No Cough, No Dyspnea Cardiac: No Symptoms, No Chest Pain, No Edema, No Syncope Abdominal/Gastrointestinal: No Symptoms, No Abdominal Pain, No Nausea, No Vomiting, No Diarrhea Genitourinary Symptoms: No Symptoms, No Dysuria Musculoskeletal: No Symptoms, No Back Pain, No Neck Pain Skin: No Symptoms, No Rash Neurological: No Symptoms, No Dizziness, No Focal Weakness, No Sensory Changes Psychological: No Symptoms Endocrine: No Symptoms Hematologic/Lymphatic: No Symptoms Immunological/Allergic: No Symptoms All Other Systems: Reviewed and Negative - Past Medical History Pertinent Past Medical History: Yes Neurological History: No Pertinent History ENT History: No Pertinent History Cardiac History: Congestive Heart Failure, Coronary Artery Disease, Hypertension, Myocardial Infarction ([place]) Respiratory History: Asthma, CHF, COPD, Pneumonia Endocrine Medical History: Diabetes Type II Musculoskeletal History: Arthritis GI Medical History: Diverticulitis, GERD, Polyps History: Renal Disease Psycho-Social History: Anxiety, Depression Male Reproductive Disorders: No Pertinent History - Past Surgical History Past Surgical History: Yes Neuro Surgical History: No Pertinent History Cardiac: Cardiac Catheterization, Cardiac Stent Respiratory: No Pertinent History Gastrointestinal: No Pertinent History Genitourinary: No Pertinent History Musculoskeletal: No Pertinent History Male Surgical History: No Pertinent History Other Surgical History: 2 heart stents. c4-c5 fusion with plate and cadaver bone - Social History Smoking Status: Former smoker How long have you smoked: 50years Exposure to second hand smoke: No Drug Use: none Patient Lives Alone: Yes - Nursing Vital Signs Nursing Vital Signs: Initial Vital Signs Temperature 97.3 F 11/09/21 20:50 Pulse Rate 79 11/09/21 20:50 Respiratory Rate 25 H 11/09/21 20:50 O2 Sat by Pulse Oximetry 80 L 11/09/21 20:50 Pain Scale Pain Intensity 0 - Physical Exam General Appearance: no apparent distress, alert, obese Eye Exam: PERRL/EOMI, eyes nml inspection Ears, Nose, Throat Exam: hearing grossly normal, normal ENT inspection, normal pharynx Neck Exam: normal inspection, supple, full range of motion Respiratory Exam: diminished breath sounds, rhonchi Cardiovascular/Chest Exam: normal heart sounds, regular rate/rhythm Abdominal/Gastrointestinal Exam: soft, No tenderness, No distention, No mass Extremity Exam: non-tender, normal range of motion, normal inspection, no calf tenderness, swelling (1+ pitting edema ) Neurologic Exam: alert, oriented x 3, cooperative, clicker operator II-XII nml as tested, sensation nml, No motor deficits Skin Exam: normal color, warm, cyanosis, No dry SpO2 Interpretation: hypoxic SpO2: 90 O2 Delivery: Nasal Cannula - Course Nursing assessment & vital signs reviewed: Yes EKG Interpreted by Me: RATE (90), Sinus Rhythm, NORMAL AXIS, NORMAL INTERVALS - Radiology Exams Chest X-ray Interpretation: Teleradiologist Report (Left middle lobe consolidation right hilar granuloma COPD changes bilateral pleural effusions left greater than right cardiomegaly intact bony thorax. Pulmonary congestion and left upper lobe patchy pneumonia) Ordered Tests: Active Orders 24 hr Category Date Time Status Pens And Pencils Repairer STAT Care 11/09/21 21:03 Active EKG-ER Only STAT Care 11/09/21 21:02 Active IV Insertion STAT Care 11/09/21 21:02 Active Pulse Oximetry (ED) STAT Care 11/09/21 21:02 Active CHEST 1 VIEW (PORTABLE) Stat Exams 11/09/21 21:19 Taken BLOOD CULTURE Stat Lab 11/09/21 23:45 Received CBC W DIFF Stat Lab 11/09/21 21:20 Completed CMP Stat Lab 11/09/21 21:20 Completed NT PRO BNP Stat Lab 11/09/21 21:20 Completed PROCALCITONIN Stat Lab 11/09/21 21:20 Completed Potassium (Lab Test) [Potassium] Stat Lab 11/09/21 23:36 Completed TROPONIN Q4H Lab 11/09/21 21:20 Completed TROPONIN Q4H Lab 11/10/21 01:15 Ordered TROPONIN Q4H Lab 11/10/21 05:15 Ordered UA W/RFX CULTURE Stat Lab 11/09/21 22:42 Completed Respiratory Therapy Assessment DAILY RT 11/09/21 21:00 Active Transfer Order Routine Transfer 11/09/21 Ordered Medication Summary Discontinued Medications Generic Name Dose Route Start Last Admin Trade Name Jagruti PRN Reason Stop Dose Admin Albuterol/Ipratropium Confirm 11/09/21 20:57 Ipratropium/Albuterol Sulfate 3 Ml Ampul.Neb Administered 11/09/21 20:58 Dose 3 ml IH .STK-MED ONE Albuterol/Ipratropium 3 ml 11/09/21 21:00 11/09/21 21:01 Ipratropium/Albuterol Sulfate 3 Ml Ampul.Neb IH 11/09/21 21:01 3 ml STAT ONE Administration Methylprednisolone Sodium 0 mg 11/09/21 21:06 11/09/21 21:15 Succinate 125 mg/ Sterile IV 11/09/21 21:07 125 mg Water 2 ml STAT ONE Administration Furosemide 40 mg 11/09/21 21:45 11/09/21 21:52 Furosemide 40 Mg/4 Ml Vial IV 11/09/21 21:46 40 mg STAT ONE Administration Furosemide Confirm 11/09/21 21:50 Furosemide 40 Mg/4 Ml Vial Administered 11/09/21 21:51 Dose 40 mg .ROUTE .STK-MED ONE Ceftriaxone Sodium/Dextrose 2 g in 50 mls @ 100 mls/hr 11/09/21 21:44 11/09/21 22:30 Rocephin 2 Gm-D5w 50ml Bag IV 11/09/21 22:13 Infused STAT STA Infusion Azithromycin 500 mg in 250 mls @ 250 mls/hr 11/09/21 21:44 11/09/21 23:48 Zithromax 500 Mg/ 250 Ml Nacl Premix IV 11/09/21 22:43 Infused STAT STA Infusion Ceftriaxone Sodium/Dextrose Confirm 11/09/21 21:50 Rocephin 2 Gm-D5w 50ml Bag Administered 11/09/21 21:51 Dose 2 g in 50 mls @ ud IV .STK-MED ONE Azithromycin Confirm 11/09/21 22:27 Zithromax 500 Mg/ 250 Ml Nacl Premix Administered 11/09/21 22:28 Dose 500 mg in 250 mls @ ud IV .STK-MED ONE Methylprednisolone Sodium Succinate Confirm 11/09/21 21:13 Methylprednis Sod Succ 125 Mg/2 Ml Vial Administered 11/09/21 21:14 Dose 125 mg .ROUTE .STK-MED ONE Sterile Water Confirm 11/09/21 21:13 Water For Injection,Sterile 10 Ml Vial Administered 11/09/21 21:14 Dose 10 ml IJ .STK-MED ONE Lab/Rad Data: Laboratory Result Diagrams 11/09/21 21:20 11/09/21 23:36 Laboratory Results 11/09/21 11/09/21 11/09/21 Range/Units 23:36 22:42 21:45 WBC (4.0-10.5) x10^3/uL RBC (4.1-5.6) x10^6/uL Hgb (12.5-18.0) g/dL Hct (42-50) % MCV (78-100) fL MCH (26-32) pg MCHC (32-36) g/dL RDW (11.5-14.0) % Plt Count (150-450) x10^3/uL MPV (7.5-11.0) fL Gran % (36.0-66.0) % Immature Gran % (Auto) (0.00-0.4) % Nucleat RBC Rel Count (0.00-0.1) % Eos # (Auto) (0-0.5) x10^3/uL Immature Gran # (Auto) (0.00-0.03) x10^3u/L Absolute Lymphs (auto) (1.0-4.6) x10^3/uL Absolute Monos (auto) (0.0-1.3) x10^3/uL Absolute Nucleated RBC (0.00-0.01) x10^3u/L Lymphocytes % (24.0-44.0) % Monocytes % (0.0-12.0) % Eosinophils % (0.00-5.0) % Basophils % (0.0-0.4) % Absolute Granulocytes (1.4-6.9) x10^3/uL Basophils # (0-0.4) x10^3/uL Sodium (137-145) mmol/L Potassium 4.9 (3.5-5.1) mmol/L Chloride (98-107) mmol/L Carbon Dioxide (22-30) mmol/L Anion Gap (5-15) MEQ/L BUN (9-20) mg/dL Creatinine (0.66-1.25) mg/dL Estimated GFR ML/MIN Glucose (74-106) mg/dL Calcium (8.4-10.2) mg/dL Total Bilirubin (0.2-1.3) mg/dL AST (17-59) U/L ALT (0-50) U/L Alkaline Phosphatase (38-126) U/L Troponin I (0.000-0.034) ng/mL NT-Pro-B Natriuret Pep (0-900) pg/mL Serum Total Protein (6.3-8.2) g/dL Albumin (3.5-5.0) g/dL Procalcitonin (0.030-0.080) ng/mL Urinalys Dipstick Clnc MAIN LAB Urine Color YELLOW (YELLOW) Urine Appearance CLEAR (CLEAR) Urine pH 5.5 (5-6) Ur Specific [place] 1.015 (1.005-1.025) POC Urine Protein Conf NEGATIVE (Negative) Urine Ketones NEGATIVE (NEGATIVE) Urine Nitrite NEGATIVE (NEGATIVE) Urine Bilirubin NEGATIVE (NEGATIVE) Urine Urobilinogen 0.2 (0-1) mg/dL Urine Leukocytes NEGATIVE (NEGATIVE) Urine WBC (Auto) NONE (0-5) /HPF Urine RBC (Auto) NONE (0-2) /HPF U Epithel Cells (Auto) NONE (FEW) /HPF Urine Bacteria (Auto) NONE (NEGATIVE) /HPF Urine RBC NEGATIVE (0-5) Randy/ul Ur Culture Indicated? NO Urine Glucose NEGATIVE (NEGATIVE) mg/dL Influenza Type A Ag NEGATIVE (NEGATIVE) Influenza Type B Ag NEGATIVE (NEGATIVE) RSV (PCR) NEGATIVE (Negative) SARS-CoV-2 (PCR) NEGATIVE (NEGATIVE) Slides for Path Review 11/09/21 11/09/21 11/09/21 Range/Units 21:20 21:20 21:20 WBC (4.0-10.5) x10^3/uL RBC (4.1-5.6) x10^6/uL Hgb (12.5-18.0) g/dL Hct (42-50) % MCV (78-100) fL MCH (26-32) pg MCHC (32-36) g/dL RDW (11.5-14.0) % Plt Count (150-450) x10^3/uL MPV (7.5-11.0) fL Gran % (36.0-66.0) % Immature Gran % (Auto) (0.00-0.4) % Nucleat RBC Rel Count (0.00-0.1) % Eos # (Auto) (0-0.5) x10^3/uL Immature Gran # (Auto) (0.00-0.03) x10^3u/L Absolute Lymphs (auto) (1.0-4.6) x10^3/uL Absolute Monos (auto) (0.0-1.3) x10^3/uL Absolute Nucleated RBC (0.00-0.01) x10^3u/L Lymphocytes % (24.0-44.0) % Monocytes % (0.0-12.0) % Eosinophils % (0.00-5.0) % Basophils % (0.0-0.4) % Absolute Granulocytes (1.4-6.9) x10^3/uL Basophils # (0-0.4) x10^3/uL Sodium 138 (137-145) mmol/L Potassium 5.8 H (3.5-5.1) mmol/L Chloride 92 L (98-107) mmol/L Carbon Dioxide 39 H (22-30) mmol/L Anion Gap 12.8 (5-15) MEQ/L BUN 29 H (9-20) mg/dL Creatinine 1.15 (0.66-1.25) mg/dL Estimated GFR > 60.0 ML/MIN Glucose 114 H (74-106) mg/dL Calcium 9.1 (8.4-10.2) mg/dL Total Bilirubin 0.30 (0.2-1.3) mg/dL AST 24 (17-59) U/L ALT 20 (0-50) U/L Alkaline Phosphatase 107 (38-126) U/L Troponin I < 0.012 (0.000-0.034) ng/mL NT-Pro-B Natriuret Pep 348 (0-900) pg/mL Serum Total Protein 7.3 (6.3-8.2) g/dL Albumin 3.9 (3.5-5.0) g/dL Procalcitonin 0.182 H (0.030-0.080) ng/mL Urinalys Dipstick Clnc Urine Color (YELLOW) Urine Appearance (CLEAR) Urine pH (5-6) Ur Specific [place] (1.005-1.025) POC Urine Protein Conf (Negative) Urine Ketones (NEGATIVE) Urine Nitrite (NEGATIVE) Urine Bilirubin (NEGATIVE) Urine Urobilinogen (0-1) mg/dL Urine Leukocytes (NEGATIVE) Urine WBC (Auto) (0-5) /HPF Urine RBC (Auto) (0-2) /HPF U Epithel Cells (Auto) (FEW) /HPF Urine Bacteria (Auto) (NEGATIVE) /HPF Urine RBC (0-5) Randy/ul Ur Culture Indicated? Urine Glucose (NEGATIVE) mg/dL Influenza Type A Ag (NEGATIVE) Influenza Type B Ag (NEGATIVE) RSV (PCR) (Negative) SARS-CoV-2 (PCR) (NEGATIVE) Slides for Path Review 11/09/21 Range/Units 21:20 WBC 9.6 (4.0-10.5) x10^3/uL RBC 4.96 (4.1-5.6) x10^6/uL Hgb 12.3 L (12.5-18.0) g/dL Hct 44.8 (42-50) % MCV 90.3 (78-100) fL MCH 24.8 L (26-32) pg MCHC 27.5 L (32-36) g/dL RDW 17.3 H (11.5-14.0) % Plt Count 229 (150-450) x10^3/uL MPV 9.8 (7.5-11.0) fL Gran % 76.2 H (36.0-66.0) % Immature Gran % (Auto) 0.7 H (0.00-0.4) % Nucleat RBC Rel Count 0.0 (0.00-0.1) % Eos # (Auto) 0.10 (0-0.5) x10^3/uL Immature Gran # (Auto) 0.07 H (0.00-0.03) x10^3u/L Absolute Lymphs (auto) 1.02 (1.0-4.6) x10^3/uL Absolute Monos (auto) 1.07 (0.0-1.3) x10^3/uL Absolute Nucleated RBC 0.00 (0.00-0.01) x10^3u/L Lymphocytes % 10.6 L (24.0-44.0) % Monocytes % 11.1 (0.0-12.0) % Eosinophils % 1.0 (0.00-5.0) % Basophils % 0.4 (0.0-0.4) % Absolute Granulocytes 7.30 H (1.4-6.9) x10^3/uL Basophils # 0.04 (0-0.4) x10^3/uL Sodium (137-145) mmol/L Potassium (3.5-5.1) mmol/L Chloride (98-107) mmol/L Carbon Dioxide (22-30) mmol/L Anion Gap (5-15) MEQ/L BUN (9-20) mg/dL Creatinine (0.66-1.25) mg/dL Estimated GFR ML/MIN Glucose (74-106) mg/dL Calcium (8.4-10.2) mg/dL Total Bilirubin (0.2-1.3) mg/dL AST (17-59) U/L ALT (0-50) U/L Alkaline Phosphatase (38-126) U/L Troponin I (0.000-0.034) ng/mL NT-Pro-B Natriuret Pep (0-900) pg/mL Serum Total Protein (6.3-8.2) g/dL Albumin (3.5-5.0) g/dL Procalcitonin (0.030-0.080) ng/mL Urinalys Dipstick Clnc Urine Color (YELLOW) Urine Appearance (CLEAR) Urine pH (5-6) Ur Specific [place] (1.005-1.025) POC Urine Protein Conf (Negative) Urine Ketones (NEGATIVE) Urine Nitrite (NEGATIVE) Urine Bilirubin (NEGATIVE) Urine Urobilinogen (0-1) mg/dL Urine Leukocytes (NEGATIVE) Urine WBC (Auto) (0-5) /HPF Urine RBC (Auto) (0-2) /HPF U Epithel Cells (Auto) (FEW) /HPF Urine Bacteria (Auto) (NEGATIVE) /HPF Urine RBC (0-5) Randy/ul Ur Culture Indicated? Urine Glucose (NEGATIVE) mg/dL Influenza Type A Ag (NEGATIVE) Influenza Type B Ag (NEGATIVE) RSV (PCR) (Negative) SARS-CoV-2 (PCR) (NEGATIVE) Slides for Path Review YES - Progress Progress: improved Air Movement: fair Progress Note: 8-year-old male presents to our ED with complaints of shortness of breath. Patient was hypoxic. Work-up reveals COPD exacerbation bilateral pneumonia and congestive heart failure. Patient received nebulizer treatment steroids Lasix and antibiotic treatment. Patient feels better. Patient additional oxygen requirement was 15 L via facemask. Patient down to 6 L nasal cannula. Patient does require nasal cannula oxygenation at home. Chest x-ray reveals pulmonary edema. Although BNP is within normal limits. Patient has bilateral lower ex tremity pitting edema. Coarse breath sounds with faint wheezing at bilateral bases. Chest x-ray reveals bilateral pneumonia. Patient is COVID-negative. Initial potassium was elevated. However repeat potassium after administration of nebulizer and Lasix showed potassium to be 4.9. plan of care discussed with patient. He agrees to admission at [facility] for further evaluation and treatment. Case discussed with Dr. Sanchez accepts admission to observation. Patient voices no other complaints or concerns at this time. Portions of this note were created with voice recognition technology. There may be grammatical, spelling, punctuation or sound alike errors 11/10/21 00:29 Blood Culture(s) Obtained: Yes Antibiotics given: Yes Discussed with : David Will see patient in: hospital (observation) Counseled pt/family regarding: lab results, diagnosis, rad results - Departure Departure Disposition: Observation Clinical Impression: COPD exacerbation, Hypoxia, CHF (congestive heart failure), Bilateral pneumonia Condition: Stable Critical Care Time: No Referrals: CHON LINCOLN [Primary Care Provider] - Follow up/PCP as directed Instructions: Heart Failure, Chronic Obstructive Pulmonary Disease Additional Instructions: Discharge/Care Plan BOSTON PHILLIPS was seen on 11/09/21 in the Emergency Room. The patient was counseled regarding Diagnosis,Lab results, Imaging studies, need for follow up and when to return to the Emergency Room. Prescriptions given: Discharge Note I have spoken with the patient and/or caregivers. I have explained the patient's condition, diagnosis and treatment plan based on the information available to me at this time. I have answered the patient's and/or caregiver's questions and addressed any concerns. The patient and/or caregivers have as good understanding of the patient's diagnosis, condition and treatment plan as can be expected at this point. The vital signs have been stable. The patient's condition is stable and appropriate for discharge from the emergency department. The patient will pursue further outpatient evaluation with the primary care physician or other designated or consulting physician as outlined in the discharge instructions. The patient and/or caregivers are agreeable to this plan of care and follow-up instructions have been explained in detail. The patient and/or caregivers have received these instruction. The patient/and or caregivers are aware that any significant change in condition or worsening of symptoms should prompt an immediate return to this or the closest emergency department or call 911.
[2021-11-09] MEDS ORDERED: Sterile H2O 10 ml IJ ONE (21:13)
[2021-11-09] MEDS ORDERED: solu-MEDROL ONE (21:13)
[2021-11-09 21:25] LABS: Basophil (Absolute #) 0.04 x10^3/uL (0-0.4); Hematocrit 44.8 % (42-50); Hemoglobin 12.3 g/dL (12.5-18.0); Lymphocyte (Absolute #) 1.02 x10^3/uL (1.0-4.6); Lymphocytes % 10.6 % (24.0-44.0); Mean Cell Volume 90.3 fL (78-100); Mean Corpuscular Hemoglobin 24.8 pg (26-32); Mean Corpuscular Hgb Concent. 27.5 g/dL (32-36); Mean Platelet Volume 9.8 fL (7.5-11.0); Monocyte (Absolute #) 1.07 x10^3/uL (0.0-1.3); Monocytes % 11.1 % (0.0-12.0); Neutrophil % 76.2 % (36.0-66.0); Platelet Count 229 x10^3/uL (150-450); Red Blood Count 4.96 x10^6/uL (4.1-5.6); Red Cell Distribution Width 17.3 % (11.5-14.0); White Blood Count 9.6 x10^3/uL (4.0-10.5)
[2021-11-09] MEDS ORDERED: ROCEPHIN 2 Gm-D5w 50ML BAG** 2 G/50 ML IVPB IV STA (21:44)
[2021-11-09] MEDS ORDERED: Zithromax 500 MG/ 250 ML NaCl Premix 500 MG/250 ML IVPB IV STA (21:44)
[2021-11-09] MEDS ORDERED: Lasix 40 MG/4 ML IV ONE (21:45)
[2021-11-09] MEDS ORDERED: ROCEPHIN 2 Gm-D5w 50ML BAG** 2 G/50 ML IVPB IV ONE (21:50)
[2021-11-09] MEDS ORDERED: Lasix 40 MG/4 ML ONE (21:50)
[2021-11-09 22:17] LABS: INFLUENZA A NEGATIVE (NEGATIVE); INFLUENZA B NEGATIVE (NEGATIVE); RESPIRATORY SYNCTIAL VIRUS NEGATIVE (Negative); SARS-CoV-2 Xpert Express NEGATIVE (NEGATIVE)
[2021-11-09] MEDS ORDERED: Zithromax 500 MG/ 250 ML NaCl Premix 500 MG/250 ML IVPB IV ONE (22:27)
[2021-11-09 22:30] LABS: ALBUMIN 3.9 g/dL (3.5-5.0); ALKALINE PHOSPHATASE 107 U/L (38-126); BLOOD UREA NITROGEN 29 mg/dL (9-20); CHLORIDE 92 mmol/L (98-107); Calcium 9.1 mg/dL (8.4-10.2); Carbon Dioxide 39 mmol/L (22-30); Creatinine 1 1.15 mg/dL (0.66-1.25); EST GLOMERULAR FILTRATION RATE > 60.0 ML/MIN; Glucose 114 mg/dL (74-106); NT PRO BNP 348 pg/mL (0-900); Potassium 5.8 mmol/L (3.5-5.1); SGOT/AST 24 U/L (17-59); SGPT/ALT 20 U/L (0-50); SODIUM 138 mmol/L (137-145); Total Protein 7.3 g/dL (6.3-8.2)
[2021-11-09 22:31] LABS: ANION GAP 12.8 MEQ/L (5-15)
[2021-11-09 23:54] LABS: Slide Review 1 YES
[2021-11-10 00:19] LABS: Appearance CLEAR (CLEAR); Bilirubin NEGATIVE (NEGATIVE); Glucose NEGATIVE (NEGATIVE); Ketones NEGATIVE (NEGATIVE); Nitrite NEGATIVE (NEGATIVE); Ph 5.5 (5-6); Protein,Urine Dip NEGATIVE (Negative); RBC NEGATIVE Ery/ul (0-5); Specific Gravity 1.015 (1.005-1.025); Urine Cultured Indicated? NO; Urobilinogen 0.2 mg/dL (0-1)
[2021-11-10 00:20] LABS: Dipstick done @ ? MAIN LAB
[2021-11-10] MEDS: solu-MEDROL 60 MG, Sterile H2O 10 ml 2 ML IV SCH ×8 (02:15→17:43)
[2021-11-10] MEDS: DUONEB 0.5-3 MG/3 ml Neb IH SCH ×4 (03:36→19:05)
[2021-11-10 04:07] LABS: Hematocrit 41.9 % (42-50); Hemoglobin 11.7 g/dL (12.5-18.0); Mean Cell Volume 88.2 fL (78-100); Mean Corpuscular Hemoglobin 24.6 pg (26-32); Mean Corpuscular Hgb Concent. 27.9 g/dL (32-36); Mean Platelet Volume 10.7 fL (7.5-11.0); Platelet Count 241 x10^3/uL (150-450); Red Blood Count 4.75 x10^6/uL (4.1-5.6); Red Cell Distribution Width 17.2 % (11.5-14.0); White Blood Count 9.5 x10^3/uL (4.0-10.5)
[2021-11-10 04:44] LABS: BLOOD UREA NITROGEN 33 mg/dL (9-20); CHLORIDE 89 mmol/L (98-107); Calcium 8.7 mg/dL (8.4-10.2); Creatinine 1 1.22 mg/dL (0.66-1.25); EST GLOMERULAR FILTRATION RATE > 60.0 ML/MIN; Glucose 273 mg/dL (74-106); NT PRO BNP 376 pg/mL (0-900); Potassium 5.4 mmol/L (3.5-5.1); SODIUM 135 mmol/L (137-145)
[2021-11-10 05:40] LABS: Carbon Dioxide 30 mmol/L (22-30)
[2021-11-10] MEDS ORDERED: solu-MEDROL ONE (05:44)
[2021-11-10 05:47] LABS: ANION GAP 21.4 MEQ/L (5-15)
[2021-11-10] MEDS ORDERED: Sterile H2O 10 ml IJ ONE (05:47)
[2021-11-10] MEDS: Advair Hfa 115/21 Common canister IH SCH ×3 (07:24→19:22)
[2021-11-10 08:12] LABS: Slide Review YES
--- NOTE | 2021-11-10 08:45 | XRAY ---
Indication: Short of breath. COPD. Comparison: January 21, 2013 Portable chest demonstrates new cardiomegaly, pulmonary edema, and moderate left/small right effusions favoring cardiac decompensation/CHF. Also new left upper lobe patchy airspace disease. Stable right hilar chunky calcified granulomas, osteopenia, and cervical fusion hardware.
[2021-11-10] MEDS ORDERED: PROVENTIL 2.5 MG/3 ML NEB IH PRN (09:01)
[2021-11-10] MEDS ORDERED: HUMULIN R IJ PRN (09:52)
[2021-11-10] MEDS ORDERED: NON-FORMULARY ITEM (Fluticasone/Umeclidin/Vilanter [Trelegy Ellipta 100-62.5-25] 1 EACH Bl IH SCH (10:00)
[2021-11-10] MEDS ORDERED: NON-FORMULARY ITEM (Potassium Chloride [Potassium Chloride] 10 MEQ Tablet.Er) PO SCH (10:00)
[2021-11-10] MEDS ORDERED: Toprol Xl 50 MG PO SCH (10:00)
[2021-11-10] MEDS ORDERED: NON-FORMULARY ITEM (Bumetanide [Bumetanide] 2 MG Tablet) PO SCH (10:00)
[2021-11-10] MEDS ORDERED: Klor Con PO SCH (10:00)
[2021-11-10] MEDS ORDERED: MEDICATION INTERVENTION MC SCH ×2 (10:15→17:45)
[2021-11-10] MEDS ORDERED: BUMEX 1 MG PO SCH (11:00)
[2021-11-10] MEDS: Glucotrol 5 MG PO SCH ×2 (11:04→17:40)
[2021-11-10] MEDS: Glucophage 500 MG PO SCH ×2 (11:04→17:42)
[2021-11-10] MEDS: Toprol Xl 100 MG PO SCH (11:05)
[2021-11-10] MEDS: Aldactone 25 MG PO SCH (11:05)
[2021-11-10] MEDS: NORVASC 5 MG PO SCH (11:05)
[2021-11-10] MEDS: Lasix 40 MG/4 ML IV SCH (11:09)
[2021-11-10] MEDS: Klor Con PO SCH (11:43)
[2021-11-10] MEDS: HUMULIN R SQ PRN ×2 (17:42→22:20)
[2021-11-10] MEDS: ROCEPHIN 1 Gm-D5w 50 ml Bag** 1 G/50 ML IVPB IV SCH (21:38)
[2021-11-10] MEDS: Zocor 10MG PO SCH (21:38)
[2021-11-10] MEDS ORDERED: NON-FORMULARY ITEM (Atorvastatin Calcium [Atorvastatin Calcium] 10 MG Tablet) PO SCH (22:00)
[2021-11-10] MEDS: Zithromax 500 MG/ 250 ML NaCl Premix 500 MG/250 ML IVPB IV SCH (22:19)
[2021-11-11] MEDS ORDERED: solu-MEDROL ONE ×3 (00:18→23:46)
[2021-11-11] MEDS: solu-MEDROL 60 MG, Sterile H2O 10 ml 2 ML IV SCH ×10 (00:28→23:53)
[2021-11-11 06:28] LABS: Absolute Neutrophil Ct (ANC) 14.43 x10^3/uL (1.4-6.9); Basophil (Absolute #) 0.02 x10^3/uL (0-0.4); Eosinophil (Absolute #) 0 x10^3/uL (0-0.5); Hematocrit 42.5 % (42-50); Hemoglobin 11.9 g/dL (12.5-18.0); Lymphocyte (Absolute #) 0.53 x10^3/uL (1.0-4.6); Lymphocytes % 3.4 % (24.0-44.0); Mean Cell Volume 88.2 fL (78-100); Mean Corpuscular Hemoglobin 24.7 pg (26-32); Mean Platelet Volume 10.4 fL (7.5-11.0); Monocyte (Absolute #) 0.32 x10^3/uL (0.0-1.3); Monocytes % 2.1 % (0.0-12.0); Neutrophil % 93.8 % (36.0-66.0); Platelet Count 269 x10^3/uL (150-450); Red Blood Count 4.82 x10^6/uL (4.1-5.6); White Blood Count 15.4 x10^3/uL (4.0-10.5)
[2021-11-11 06:42] LABS: Calcium 8.7 mg/dL (8.4-10.2); Creatinine 1 1.44 mg/dL (0.66-1.25); EST GLOMERULAR FILTRATION RATE 51.5 ML/MIN
[2021-11-11] MEDS: DUONEB 0.5-3 MG/3 ml Neb IH SCH ×3 (07:20→19:32)
[2021-11-11] MEDS: Advair Hfa 115/21 Common canister IH SCH ×2 (07:27→19:32)
[2021-11-11] MEDS: HUMULIN R SQ PRN ×4 (08:18→23:54)
[2021-11-11] MEDS: Glucophage 500 MG PO SCH ×2 (08:19→17:16)
[2021-11-11] MEDS: Glucotrol 5 MG PO SCH ×2 (08:19→17:16)
[2021-11-11] MEDS: NORVASC 5 MG PO SCH (09:31)
[2021-11-11] MEDS: Toprol Xl 100 MG PO SCH (09:31)
[2021-11-11] MEDS: Lasix 40 MG/4 ML IV SCH (09:32)
[2021-11-11] MEDS: Aldactone 25 MG PO SCH (09:32)
[2021-11-11] MEDS: Klor Con PO SCH (09:32)
--- NOTE | 2021-11-11 14:17 | PCM.HP ---
History of Present Illness - Chief Complaint Chief Complaint: c/o shortness of breath for 2-3 days Date: 11/10/21 History of Present Illness: is a 71 year old male.with history of COPD on home O2, congestive heart failure, cardiac stent, diabetes, chronic renal insufficiency presents to our ED with a 6-day history of progressive shortness of breath. Patient also has bilateral lower extremity pitting edema which he states is chronic. Shortness of breath has been progressive. Patient states that has gotten significantly worse over the past 24 hours. Upon arrival patient was hypoxic at 80% on 3 L. Patient normally uses 3 L at home. Patient denies pain. No nausea vomiting or diaphoresis. No diarrhea. No rash. Symptoms are progressive. Symptoms are moderate in intensity. Exertion worsens symptoms. Lying flat worsens symptoms. Patient voices no other complaints concerns at this time. - Review of Systems Constitutional: No Fever, No Chills Eyes: No Symptoms Ears, Nose, & Throat: No Symptoms Respiratory: Cough, Orthopnea, Short Of Breath, Wheezing Cardiac: No Chest Pain, No Edema, No Syncope Abdominal/Gastrointestinal: No Abdominal Pain, No Nausea, No Vomiting, No Diarrhea Genitourinary Symptoms: No Dysuria Musculoskeletal: No Back Pain, No Neck Pain Skin: No Rash Neurological: No Dizziness, No Focal Weakness, No Sensory Changes Psychological: No Symptoms Endocrine: No Symptoms Hematologic/Lymphatic: No Symptoms Immunological/Allergic: No Symptoms Medications & Allergies Home Medications: Home Medication List Amlodipine Besylate 5 mg [Norvasc 5 mg] 5 mg PO DAILY 01/08/21 [History Confirmed 11/10/21] Atorvastatin Calcium 10 mg PO HS 01/08/21 [History Confirmed 11/10/21] Bumetanide 2 mg PO BID 01/08/21 [History Confirmed 11/10/21] Fluticasone/Umeclidin/Vilanter [Trelegy Ellipta 100-62.5-25] 1 puff IH DAILY 01/08/21 [History Confirmed 11/10/21] Metoprolol Succinate 50 mg [Toprol Xl 50 MG] 100 mg PO DAILY 01/08/21 [History Confirmed 11/10/21] Sildenafil Citrate [Sildenafil] 20 mg PO DAILY 01/08/21 [History Confirmed 11/10/21] Insulin Regular, Human [Novolin R] 1 unit IJ UD PRN #1 01/10/21 [Rx Confirmed 11/10/21] Metformin HCl 500 mg [Glucophage 500 MG] 500 mg PO BIDWM 30 Days #60 tablet 01/10/21 [Rx Confirmed 11/10/21] Potassium Chloride 20 meq PO DAILY 30 Days #60 01/10/21 [Rx Confirmed 11/10/21] Glipizide 5 mg [Glucotrol 5 MG] 10 mg PO BID 11/10/21 [History Confirmed 11/10/21] Spironolactone 25 mg [Aldactone 25 MG] 25 mg PO DAILY 11/10/21 [History Confirmed 11/10/21] Allergies/Adverse Reactions: Allergies Allergy/AdvReac Type Severity Reaction Status Date / Time No Known Drug Allergies Allergy Verified 01/07/21 23:01 - Past Medical History Past Medical History: Yes Neurological History: No Pertinent History ENT History: No Pertinent History Cardiac History: Congestive Heart Failure, Coronary Artery Disease, Hypert ension, Myocardial Infarction (AR) Respiratory History: Asthma, CHF, COPD, Pneumonia Endocrine Medical History: Diabetes Type II Musculoskelatal History: Arthritis GI Medical History: Diverticulitis, GERD, Polyps History: Renal Disease Pyscho-Social History: Anxiety, Depression Male Reproductive Disorders: No Pertinent History - Past Surgical History Past Surgical History: Yes Neuro Surgical History: No Pertinent History Cardiac History: Cardiac Catheterization, Cardiac Stent Respiratory Surgery: No Pertinent History GI Surgical History: No Pertinent History Genitourinary Surgical Hx: No Pertinent History Musculskeletal Surgical Hx: No Pertinent History Male Surgical History: No Pertinent History Other Surgical History: 2 heart stents. c4-c5 fusion with plate and cadaver bone - Social History Smoking Status: Former smoker How long have you smoked: 50years Exposure to second hand smoke: No Alcohol: None Drug Use: none - Physical Exam Vital Signs: Vital Signs - 24 hr Temp Pulse Resp BP Pulse Ox 11/11/21 13:02 98 H 22 87 L 11/11/21 12:00 97.7 F 97 H 18 123/67 90 L 11/11/21 07:48 97.3 F 86 20 154/83 90 L 11/11/21 07:27 89 20 90 L 11/11/21 04:00 97.7 F 97 H 22 158/74 93 L 11/11/21 00:00 97.3 F 94 H 21 159/74 92 L 11/10/21 20:00 97.5 F 96 H 22 145/74 90 L 11/10/21 19:07 96 H 18 90 L 11/10/21 16:00 97.5 F 99 H 21 173/78 91 L 11/10/21 15:30 94 H 20 89 L General Appearance: no apparent distress, alert Neurologic Exam: alert, oriented x 3, cooperative, normal mood/affect, nml cerebellar function, nml station & gait, sensation nml, No motor deficits Eye Exam: PERRL/EOMI, eyes nml inspection Ears, Nose, Throat Exam: normal ENT inspection, TMs normal, pharynx normal, moist mucous membranes Neck Exam: normal inspection, non-tender, supple, full range of motion Respiratory Exam: diminished breath sounds, crackles/rales, rhonchi, wheezing, No respiratory distress Cardiovascular Exam: regular rate/rhythm, normal heart sounds, normal peripheral pulses Gastrointestinal/Abdomen Exam: soft, normal bowel sounds, No tenderness, No mass Back Exam: normal inspection, normal range of motion, No CVA tenderness, No vertebral tenderness Extremity Exam: normal inspection, normal range of motion, pelvis stable Skin Exam: normal color, warm, dry, No rash Lymphatic Exam: No adenopathy Results - Labs Lab/Micro Results: Lab Results-Last 24 Hours 11/10/21 11/10/21 11/11/21 Range/Units 16:10 21:09 05:59 WBC 15.4 H (4.0-10.5) x10^3/uL RBC 4.82 (4.1-5.6) x10^6/uL Hgb 11.9 L (12.5-18.0) g/dL Hct 42.5 (42-50) % MCV 88.2 (78-100) fL MCH 24.7 L (26-32) pg MCHC 28.0 L (32-36) g/dL RDW 17.0 H (11.5-14.0) % Plt Count 269 (150-450) x10^3/uL MPV 10.4 (7.5-11.0) fL Gran % 93.8 H (36.0-66.0) % Immature Gran % (Auto) 0.6 H (0.00-0.4) % Nucleat RBC Rel Count 0.0 (0.00-0.1) % Eos # (Auto) 0 (0-0.5) x10^3/uL Immature Gran # (Auto) 0.09 H (0.00-0.03) x10^3u/L Absolute Lymphs (auto) 0.53 L (1.0-4.6) x10^3/uL Absolute Monos (auto) 0.32 (0.0-1.3) x10^3/uL Absolute Nucleated RBC 0.00 (0.00-0.01) x10^3u/L Lymphocytes % 3.4 L (24.0-44.0) % Monocytes % 2.1 (0.0-12.0) % Eosinophils % 0.0 (0.00-5.0) % Basophils % 0.1 (0.0-0.4) % Absolute Granulocytes 14.43 H (1.4-6.9) x10^3/uL Basophils # 0.02 (0-0.4) x10^3/uL Sodium (137-145) mmol/L Potassium (3.5-5.1) mmol/L Chloride (98-107) mmol/L Carbon Dioxide (22-30) mmol/L Anion Gap (5-15) MEQ/L BUN (9-20) mg/dL Creatinine (0.66-1.25) mg/dL Estimated GFR ML/MIN Glucose (74-106) mg/dL POC Glucometer 264 H 355 H (74 to 106) mg/dL Calcium (8.4-10.2) mg/dL 11/11/21 11/11/21 11/11/21 Range/Units 05:59 07:20 11:13 WBC (4.0-10.5) x10^3/uL RBC (4.1-5.6) x10^6/uL Hgb (12.5-18.0) g/dL Hct (42-50) % MCV (78-100) fL MCH (26-32) pg MCHC (32-36) g/dL RDW (11.5-14.0) % Plt Count (150-450) x10^3/uL MPV (7.5-11.0) fL Gran % (36.0-66.0) % Immature Gran % (Auto) (0.00-0.4) % Nucleat RBC Rel Count (0.00-0.1) % Eos # (Auto) (0-0.5) x10^3/uL Immature Gran # (Auto) (0.00-0.03) x10^3u/L Absolute Lymphs (auto) (1.0-4.6) x10^3/uL Absolute Monos (auto) (0.0-1.3) x10^3/uL Absolute Nucleated RBC (0.00-0.01) x10^3u/L Lymphocytes % (24.0-44.0) % Monocytes % (0.0-12.0) % Eosinophils % (0.00-5.0) % Basophils % (0.0-0.4) % Absolute Granulocytes (1.4-6.9) x10^3/uL Basophils # (0-0.4) x10^3/uL Sodium 134 L (137-145) mmol/L Potassium 5.0 (3.5-5.1) mmol/L Chloride 89 L (98-107) mmol/L Carbon Dioxide 43 H (22-30) mmol/L Anion Gap 7 (5-15) MEQ/L BUN 47 H (9-20) mg/dL Creatinine 1.44 H (0.66-1.25) mg/dL Estimated GFR 51.5 ML/MIN Glucose 164 H (74-106) mg/dL POC Glucometer 161 H 256 H (74 to 106) mg/dL Calcium 8.7 (8.4-10.2) mg/dL Accuchecks Date 11/11/21 Date 11/11/21 Time 11:13 Time 07:20 - Radiology Impressions Radiology Exams & Impressions: Radiology Procedures Category Date Time Status CHEST 1 VIEW (PORTABLE) Stat Exams 11/09/21 21:19 Completed CHEST 2 VIEWS (PA AND LAT) DAILY Exams 11/11/21 09:15 Taken RAD/CHEST 1 VIEW (PORTABLE) Indication: Short of breath. COPD. Comparison: January 21, 2013 Portable chest demonstrates new cardiomegaly, pulmonary edema, and moderate left/small right effusions favoring cardiac decompensation/CHF. Also new left upper lobe patchy airspace disease. Stable right hilar chunky calcified granulomas, osteopenia, and cervical fusion hardware. Assessment/Plan (1) CHF (congestive heart failure) Current Visit: Yes Status: Chronic Qualifiers: Heart failure type: combined systolic and diastolic Heart failure chronicity: acute on chronic Qualified Code(s): I50.43 - Acute on chronic combined systolic (congestive) and diastolic (congestive) heart failure Assessment & Plan: Chief Complaint Diagnosis CHF, COPD, Pneumonia, Hypoxia Allergies Allergy/AdvReac Type Severity Reaction Status Date / Time No Known Drug Allergies Allergy Verified 01/07/21 23:01 Vital Signs (Last 24 hours) Temp Pulse Resp BP Pulse Ox 11/11/21 13:02 98 H 22 87 L 11/11/21 12:00 97.7 F 97 H 18 123/67 90 L 11/11/21 07:48 97.3 F 86 20 154/83 90 L 11/11/21 07:27 89 20 90 L 11/11/21 04:00 97.7 F 97 H 22 158/74 93 L 11/11/21 00:00 97.3 F 94 H 21 159/74 92 L 11/10/21 20:00 97.5 F 96 H 22 145/74 90 L 11/10/21 19:07 96 H 18 90 L 11/10/21 16:00 97.5 F 99 H 21 173/78 91 L 11/10/21 15:30 94 H 20 89 L Home Medications Medication Instructions Recorded Confirmed Last Taken Type Glipizide 5 mg [Glucotrol 5 10 mg PO BID 11/10/21 11/10/21 11/09/21 08:00 History MG] Spironolactone 25 mg [Aldactone 25 mg PO DAILY 11/10/21 11/10/21 Unknown History 25 MG] Current Medications Generic Name Dose Route Start Last Admin Trade Name Freq PRN Reason Stop Dose Admin Albuterol Sulfate 2.5 mg 11/10/21 09:01 11/11/21 07:27 Albuterol Sulfate 2.5 Mg/3 Ml Neb IH 12/10/21 09:00 2.5 mg Q4H PRN PRN Administration SHORTNESS OF BREATH/WHEEZING Albuterol/Ipratropium 3 ml 11/10/21 13:00 11/11/21 13:02 Ipratropium/Albuterol Sulfate 3 Ml Ampul.Neb IH 12/10/21 12:59 3 ml TIDRT NICK Administration Amlodipine Besylate 5 mg 11/10/21 11:00 11/11/21 09:31 Amlodipine Besylate 5 Mg Tablet PO 12/10/21 10:59 5 mg DAILY NICK Administration Bumetanide 2 mg 11/10/21 11:00 Bumetanide 1 Mg Tablet PO 12/10/21 10:59 BID NICK Methylprednisolone Sodium 0 mg 11/10/21 00:44 11/11/21 12:38 Succinate 60 mg/ Sterile Water IV 12/10/21 00:43 60 mg 2 ml Q6HT NICK Administration Furosemide 40 mg 11/10/21 10:00 11/11/21 09:32 Furosemide 40 Mg/4 Ml Vial IV 12/10/21 09:59 40 mg DAILY NICK Administration Glipizide 10 mg 11/10/21 11:00 11/11/21 08:19 Glipizide 5 Mg Tablet PO 12/10/21 10:59 10 mg BIDWM NICK Administration Ceftriaxone Sodium/Dextrose 1 g in 50 mls @ 100 mls/hr 11/10/21 22:00 11/10/21 21:38 Rocephin 1 Gm-D5w 50 Ml Bag IV 11/13/21 21:59 100 mls/hr Q24H22 NICK Administration Azithromycin 500 mg in 250 mls @ 250 mls/hr 11/10/21 22:00 11/10/21 22:19 Zithromax 500 Mg/ 250 Ml Nacl Premix IV 12/10/21 21:59 250 mls/hr Q24H22 NICK Administration Insulin Human Regular 0 unit 11/10/21 10:00 11/11/21 12:41 Insulin Regular, Human 1 Unit SQ 12/10/21 09:59 7 unit UD PRN Administration Metformin HCl 500 mg 11/10/21 11:00 11/11/21 08:19 Metformin Hcl 500 Mg Tablet PO 12/10/21 10:59 500 mg BIDWM NICK Administration Metoprolol Succinate 100 mg 11/10/21 11:00 11/11/21 09:31 Metoprolol Succinate 100 Mg Tablet.Sa PO 12/10/21 10:59 100 mg DAILY NICK Administration Miscellaneous Information 1 each 11/10/21 17:45 Medication Intervention 1 Each Each 12/10/21 17:44 .RN TO CHECK NICK Potassium Chloride 20 meq 11/10/21 11:00 11/11/21 09:32 Potassium Chloride Tab 10 Meq Tab PO 12/10/21 10:59 20 meq DAILY NICK Administration Fluticasone/Salmeterol 2 puff 11/10/21 07:00 11/11/21 07:27 Fluticasone/Salmeterol 115/21 - 120 Puff Common Canister 12/10/21 06:59 2 puff BIDRT NICK Administration Simvastatin 10 mg 11/10/21 22:00 11/10/21 21:38 Simvastatin 10 Mg Tablet PO 12/10/21 21:59 10 mg HS NICK Administration Spironolactone 25 mg 11/10/21 11:00 11/11/21 09:32 Spironolactone 25 Mg Tablet PO 12/10/21 10:59 25 mg DAILY NICK Administration Discontinued Medications Generic Name Dose Route Start Last Admin Trade Name Daniloq PRN Reason Stop Dose Admin Albuterol/Ipratropium Confirm 11/09/21 20:57 Ipratropium/Albuterol Sulfate 3 Ml Ampul.Neb Administered 11/09/21 20:58 Dose 3 ml IH .STK-MED ONE Albuterol/Ipratropium 3 ml 11/09/21 21:00 11/09/21 21:01 Ipratropium/Albuterol Sulfate 3 Ml Ampul.Neb 11/09/21 21:01 3 ml STAT ONE Administration Albuterol/Ipratropium 3 ml 11/10/21 03:00 11/10/21 07:23 Ipratropium/Albuterol Sulfate 3 Ml Ampul.Neb 12/10/21 02:59 3 ml Q4HRT NICK Administration Methylprednisolone Sodium 0 mg 11/09/21 21:06 11/09/21 21:15 Succinate 125 mg/ Sterile IV 11/09/21 21:07 125 mg Water 2 ml STAT ONE Administration Furosemide 40 mg 11/09/21 21:45 11/09/21 21:52 Furosemide 40 Mg/4 Ml Vial IV 11/09/21 21:46 40 mg STAT ONE Administration Furosemide Confirm 11/09/21 21:50 Furosemide 40 Mg/4 Ml Vial Administered 11/09/21 21:51 Dose 40 mg .ROUTE .STK-MED ONE Ceftriaxone Sodium/Dextrose 2 g in 50 mls @ 100 mls/hr 11/09/21 21:44 11/09/21 22:30 Rocephin 2 Gm-D5w 50ml Bag IV 11/09/21 22:13 Infused STAT STA Infusion Azithromycin 500 mg in 250 mls @ 250 mls/hr 11/09/21 21:44 11/09/21 23:48 Zithromax 500 Mg/ 250 Ml Nacl Premix IV 11/09/21 22:43 Infused STAT STA Infusion Ceftriaxone Sodium/Dextrose Confirm 11/09/21 21:50 Rocephin 2 Gm-D5w 50ml Bag Administered 11/09/21 21:51 Dose 2 g in 50 mls @ ud IV .STK-MED ONE Azithromycin Confirm 11/09/21 22:27 Zithromax 500 Mg/ 250 Ml Nacl Premix Administered 11/09/21 22:28 Dose 500 mg in 250 mls @ ud IV .STK-MED ONE Insulin Human Regular 1 unit 11/10/21 09:52 Insulin Regular, Human 1 Unit IJ 12/10/21 09:51 UD PRN HYPERGLYCEMIA Methylprednisolone Sodium Succinate Confirm 11/09/21 21:13 Methylprednis Sod Succ 125 Mg/2 Ml Vial Administered 11/09/21 21:14 Dose 125 mg .ROUTE .STK-MED ONE Methylprednisolone Sodium Succinate Confirm 11/10/21 05:44 Methylprednis Sod Succ 125 Mg/2 Ml Vial Administered 11/10/21 05:45 Dose 125 mg .ROUTE .STK-MED ONE Methylprednisolone Sodium Succinate Confirm 11/11/21 00:18 Methylprednis Sod Succ 125 Mg/2 Ml Vial Administered 11/11/21 00:19 Dose 125 mg .ROUTE .STK-MED ONE Methylprednisolone Sodium Succinate Confirm 11/11/21 06:31 Methylprednis Sod Succ 125 Mg/2 Ml Vial Administered 11/11/21 06:32 Dose 125 mg .ROUTE .STK-MED ONE Miscellaneous Information 1 each 11/10/21 10:15 Medication Intervention 1 Each Each 12/10/21 10:14 .RN TO CHECK NICK Potassium Chloride 20 meq 11/10/21 10:00 Potassium Chloride Tab 10 Meq Tab PO 12/10/21 09:59 DAILY NICK Sterile Water Confirm 11/09/21 21:13 Water For Injection,Sterile 10 Ml Vial Administered 11/09/21 21:14 Dose 10 ml IJ .STK-MED ONE Sterile Water Confirm 11/10/21 05:47 Water For Injection,Sterile 10 Ml Vial Administered 11/10/21 05:48 Dose 10 ml IJ .STK-MED ONE Intake & Output (Last 24 hours) 11/09/21 11/10/21 11/11/21 11/12/21 11:59 11:59 11:59 11:59 Intake Total 1020 1451 840 Output Total 700 4050 500 Balance 320 -6058 340 Weight 125.5 kg Laboratory Results (Last 24 hours) 11/11/21 11/11/21 11/11/21 11:13 07:20 05:59 WBC RBC Hgb Hct MCV MCH MCHC RDW Plt Count MPV Gran % Immature Gran % (Auto) Nucleat RBC Rel Count Eos # (Auto) Immature Gran # (Auto) Absolute Lymphs (auto) Absolute Monos (auto) Absolute Nucleated RBC Lymphocytes % Monocytes % Eosinophils % Basophils % Absolute Granulocytes Basophils # Sodium 134 L Potassium 5.0 Chloride 89 L Carbon Dioxide 43 H Anion Gap 7 BUN 47 H Creatinine 1.44 H Estimated GFR 51.5 Glucose 164 H POC Glucometer 256 H 161 H Calcium 8.7 11/11/21 11/10/21 11/10/21 05:59 21:09 16:10 WBC 15.4 H RBC 4.82 Hgb 11.9 L Hct 42.5 MCV 88.2 MCH 24.7 L MCHC 28.0 L RDW 17.0 H Plt Count 269 MPV 10.4 Gran % 93.8 H Immature Gran % (Auto) 0.6 H Nucleat RBC Rel Count 0.0 Eos # (Auto) 0 Immature Gran # (Auto) 0.09 H Absolute Lymphs (auto) 0.53 L Absolute Monos (auto) 0.32 Absolute Nucleated RBC 0.00 Lymphocytes % 3.4 L Monocytes % 2.1 Eosinophils % 0.0 Basophils % 0.1 Absolute Granulocytes 14.43 H Basophils # 0.02 Sodium Potassium Chloride Carbon Dioxide Anion Gap BUN Creatinine Estimated GFR Glucose POC Glucometer 355 H 264 H Calcium Orders (Last 24 hours) Category Date Time Status CHEST 2 VIEWS (PA AND LAT) DAILY Exams 11/11/21 09:15 Taken BMP AM.LAB Lab 11/11/21 05:59 Completed CBC W DIFF AM.LAB Lab 11/11/21 05:59 Completed POCT GLUCOSE Stat Lab 11/10/21 16:10 Completed POCT GLUCOSE Stat Lab 11/10/21 21:09 Completed POCT GLUCOSE Stat Lab 11/11/21 07:20 Completed POCT GLUCOSE Stat Lab 11/11/21 11:13 Completed Azithromycin 500 mg/250 ml [Zithromax 500 MG/ 250 ML Med 11/10/21 22:00 Active NaCl Premix] 500 mg in 250 ml IV Q24H22 Ceftriaxone 1 GM/50 ML PREMIX* [ROCEPHIN 1 Gm-D5w 50 ml Med 11/10/21 22:00 Active Bag] 1 g in 50 ml IV Q24H22 Medication Intervention Med 11/10/21 17:45 Active 1 each MC .RN TO CHECK Methylprednis Sod Succ 125 mg* [solu-MEDROL] Med 11/11/21 00:18 Discontinued 125 mg .ROUTE .STK-MED ONE Methylprednis Sod Succ 125 mg* [solu-MEDROL] Med 11/11/21 06:31 Discontinued 125 mg .ROUTE .STK-MED ONE Simvastatin 10 mg [Zocor 10MG] Med 11/10/21 22:00 Active 10 mg PO HS Code(s): I50.9 - HEART FAILURE, UNSPECIFIED (2) COPD exacerbation Current Visit: Yes Status: Acute Code(s): J44.1 - CHRONIC OBSTRUCTIVE PULMONARY DISEASE W (ACUTE) EXACERBATION (3) CAD (coronary artery disease) Current Visit: No Status: Chronic Qualifiers: Coronary Disease-Associated Artery/Lesion type: [place] artery [place] vs. transplanted heart: [place] heart Associated angina: without angina Qualified Code(s): I25.10 - Atherosclerotic heart disease of [place] coronary artery without angina pectoris Code(s): I25.10 - ATHSCL HEART DISEASE OF [place] CORONARY ARTERY W/O ANG PCTRS (4) COPD (chronic obstructive pulmonary disease) Current Visit: Yes Status: Chronic Qualifiers: COPD type: COPD with acute exacerbation Qualified Code(s): J44.1 - Chronic obstructive pulmonary disease with (acute) exacerbation (5) Chronic hypoxemic respiratory failure Current Visit: Yes Status: Chronic (6) HTN (hypertension) Current Visit: Yes Status: Chronic Qualifiers: Hypertension type: primary hypertension Code(s): I10 - ESSENTIAL (PRIMARY) HYPERTENSION
[2021-11-11] MEDS ORDERED: Docusate Sodium 100 MG PO PRN (17:51)
[2021-11-11 17:52] LABS: Slide Review 1 YES
--- NOTE | 2021-11-11 21:31 | XRAY ---
Patient: Short of breath. Pneumonia. COPD. Comparison: November 09, 2021 Stable chest again demonstrating cardiomegaly, pulmonary edema, and moderate left/mild right effusions again favoring cardiac decompensation/CHF. Stable superimposed left upper lobe patchy airspace disease. Comment: Preliminary interpretation made by C. No critical discrepancy.
[2021-11-11] MEDS: Zocor 10MG PO SCH (23:53)
[2021-11-11] MEDS: ROCEPHIN 1 Gm-D5w 50 ml Bag** 1 G/50 ML IVPB IV SCH (23:53)
[2021-11-12] MEDS: Zithromax 500 MG/ 250 ML NaCl Premix 500 MG/250 ML IVPB IV SCH ×2 (00:08→23:07)
[2021-11-12] MEDS ORDERED: solu-MEDROL ONE ×2 (06:24→17:27)
[2021-11-12] MEDS: solu-MEDROL 60 MG, Sterile H2O 10 ml 2 ML IV SCH ×4 (06:36→17:27)
[2021-11-12 06:47] LABS: Absolute Neutrophil Ct (ANC) 12.83 x10^3/uL (1.4-6.9); Basophil (Absolute #) 0.01 x10^3/uL (0-0.4); Eosinophil (Absolute #) 0 x10^3/uL (0-0.5); Hematocrit 42.9 % (42-50); Hemoglobin 11.9 g/dL (12.5-18.0); Lymphocyte (Absolute #) 0.39 x10^3/uL (1.0-4.6); Lymphocytes % 2.8 % (24.0-44.0); Mean Cell Volume 88.3 fL (78-100); Mean Corpuscular Hemoglobin 24.5 pg (26-32); Mean Corpuscular Hgb Concent. 27.7 g/dL (32-36); Mean Platelet Volume 10.4 fL (7.5-11.0); Monocyte (Absolute #) 0.46 x10^3/uL (0.0-1.3); Monocytes % 3.3 % (0.0-12.0); Neutrophil % 92.7 % (36.0-66.0); Platelet Count 263 x10^3/uL (150-450); Red Blood Count 4.86 x10^6/uL (4.1-5.6); Red Cell Distribution Width 17.2 % (11.5-14.0); White Blood Count 13.8 x10^3/uL (4.0-10.5)
[2021-11-12 06:50] LABS: ALBUMIN 3.7 g/dL (3.5-5.0); BILIRUBIN,TOTAL 0.2 mg/dL (0.2-1.3); Calcium 8.5 mg/dL (8.4-10.2); Creatinine 1 1.46 mg/dL (0.66-1.25); EST GLOMERULAR FILTRATION RATE 50.7 ML/MIN; Potassium 4.8 mmol/L (3.5-5.1); Total Protein 7.4 g/dL (6.3-8.2)
--- NOTE | 2021-11-12 07:22 | XRAY ---
Indication: Follow-up pneumonia. Comparison: One day earlier. PA/lateral chest unchanged again demonstrating cardiomegaly, central vascular prominence, pulmonary edema, moderate left/mild right effusions, left hilar airspace opacity, and right hilar calcified calcified node. No new cardiopulmonary abnormalities.
[2021-11-12] MEDS: Advair Hfa 115/21 Common canister IH SCH ×2 (08:18→19:27)
[2021-11-12] MEDS: DUONEB 0.5-3 MG/3 ml Neb IH SCH ×3 (08:19→19:27)
[2021-11-12] MEDS: Glucophage 500 MG PO SCH ×2 (08:30→17:21)
[2021-11-12] MEDS: Glucotrol 5 MG PO SCH ×2 (08:30→17:21)
[2021-11-12] MEDS: Klor Con PO SCH (11:15)
[2021-11-12] MEDS: Toprol Xl 100 MG PO SCH (11:16)
[2021-11-12] MEDS: NORVASC 5 MG PO SCH (11:17)
[2021-11-12] MEDS: Aldactone 25 MG PO SCH (11:17)
[2021-11-12] MEDS: BUMEX 1 MG IV SCH ×2 (11:25→22:03)
[2021-11-12 11:28] LABS: ANION GAP 10.8 MEQ/L (5-15)
[2021-11-12 15:26] LABS: Slide Review 1 YES
[2021-11-12] MEDS: HUMULIN R SQ PRN ×2 (17:27→22:16)
[2021-11-12] MEDS ORDERED: CLARITIN 10 MG PO PRN (19:06)
[2021-11-12] MEDS: Zocor 10MG PO SCH (22:03)
[2021-11-12] MEDS: ROCEPHIN 1 Gm-D5w 50 ml Bag** 1 G/50 ML IVPB IV SCH (22:03)
[2021-11-13] MEDS ORDERED: solu-MEDROL ONE (06:17)
[2021-11-13] MEDS: solu-MEDROL 60 MG, Sterile H2O 10 ml 2 ML IV SCH ×4 (06:36→17:26)
[2021-11-13] MEDS: Advair Hfa 115/21 Common canister IH SCH ×2 (07:54→21:15)
[2021-11-13] MEDS: DUONEB 0.5-3 MG/3 ml Neb IH SCH ×3 (07:55→21:15)
[2021-11-13] MEDS: Glucophage 500 MG PO SCH ×2 (08:00→17:26)
[2021-11-13] MEDS: Glucotrol 5 MG PO SCH ×2 (08:00→17:26)
--- NOTE | 2021-11-13 09:41 | PCM.NOTE ---
Date and Time: 11/13/21939 Subjective Assessment: doing little better - Review of Systems Constitutional: No Fever, No Chills Eyes: No Symptoms Ears, Nose, & Throat: No Symptoms Respiratory: Orthopnea, Short Of Breath, No Cough Cardiac: Edema, No Chest Pain, No Syncope Abdominal/Gastrointestinal: No Abdominal Pain, No Nausea, No Vomiting, No Diarrhea Genitourinary Symptoms: No Dysuria Musculoskeletal: No Back Pain, No Neck Pain Skin: No Rash Neurological: No Dizziness, No Focal Weakness, No Sensory Changes Psychological: No Symptoms Endocrine: No Symptoms Hematologic/Lymphatic: No Symptoms Immunological/Allergic: No Symptoms Objective Exam General Appearance: no apparent distress, alert Neurologic Exam: alert, oriented x 3, cooperative, normal mood/affect, nml cerebellar function, sensation nml, No motor deficits Skin Exam: normal color, warm, dry Eye Exam: PERRL, EOMI, eyes nml inspection Ears, Nose, Throat Exam: normal ENT inspection, pharynx normal, moist mucous membranes Neck Exam: normal inspection, non-tender, supple, full range of motion Respiratory Exam: crackles/rales, rhonchi, No respiratory distress Cardiovascular Exam: regular rate/rhythm, normal heart sounds Gastrointestinal/Abdomen Exam: soft, No tenderness, No mass Extremity Exam: normal inspection, normal range of motion Back Exam: normal inspection, normal range of motion, No CVA tenderness, No vertebral tenderness Male Genitalia Exam: deferred Rectal Exam: deferred OBJECTIVE DATA Vital Signs: Vital Signs - 24 hr Temp Pulse Resp BP Pulse Ox 11/13/21 08:00 97.1 F 87 21 174/82 91 L 11/13/21 07:55 89 18 96 11/13/21 04:00 20 95 11/12/21 23:53 97.7 F 102 H 21 158/85 94 L 11/12/21 20:00 97.5 F 98 H 20 164/72 92 L 11/12/21 19:25 89 20 94 L 11/12/21 16:52 91 H 18 94 L 11/12/21 15:52 97.5 F 97 H 18 153/72 92 L 11/12/21 11:44 97.5 F 102 H 18 140/81 91 L Pain Assessment - Last Documented Pain Intensity 0 Intake and Output: Intake & Output 11/10/21 11/11/21 11/12/21 11/13/21 11:59 11:59 11:59 11:59 Intake Total 1020 1451 3020 1420 Output Total 700 4050 1200 1850 Balance 320 -2599 1820 -430 Weight 125.5 kg 128.3 kg 128.7 kg Lab Results: Lab Results-Last 24 Hours 11/12/21 11/12/21 11/12/21 Range/Units 06:08 06:08 11:13 Anion Gap 10.8 (5-15) MEQ/L POC Glucometer 200 H (74 to 106) mg/dL Slides for Path Review YES 11/12/21 11/12/21 11/13/21 Range/Units 15:44 20:38 07:46 Anion Gap (5-15) MEQ/L POC Glucometer 244 H 236 H 126 H (74 to 106) mg/dL Slides for Path Review Radiology Exams: Radiology Procedures Category Date Time Status CHEST 2 VIEWS (PA AND LAT) DAILY Exams 11/11/21 09:15 Completed CHEST 2 VIEWS (PA AND LAT) Urgent Exams 11/12/21 07:11 Completed Assessment/Plan (1) CHF (congestive heart failure) Current Visit: Yes Status: Chronic Qualifiers: Heart failure type: combined systolic and diastolic Heart failure chronicity: acute on chronic Qualified Code(s): I50.43 - Acute on chronic combined systolic (congestive) and diastolic (congestive) heart failure Assessment & Plan: Chief Complaint Diagnosis c/o shortness of breath for 2-3 days Admission Date Date 11/10/21 Allergies Allergy/AdvReac Type Severity Reaction Status Date / Time No Known Drug Allergies Allergy Verified 01/07/21 23:01 Vital Signs (Last 24 hours) Temp Pulse Resp BP Pulse Ox 11/13/21 08:00 97.1 F 87 21 174/82 91 L 11/13/21 07:55 89 18 96 11/13/21 04:00 20 95 11/12/21 23:53 97.7 F 102 H 21 158/85 94 L 11/12/21 20:00 97.5 F 98 H 20 164/72 92 L 11/12/21 19:25 89 20 94 L 11/12/21 16:52 91 H 18 94 L 11/12/21 15:52 97.5 F 97 H 18 153/72 92 L 11/12/21 11:44 97.5 F 102 H 18 140/81 91 L Home Medications Medication Instructions Recorded Confirmed Last Taken Type Glipizide 5 mg [Glucotrol 5 10 mg PO BID 11/10/21 11/10/21 11/09/21 08:00 History MG] Spironolactone 25 mg [Aldactone 25 mg PO DAILY 11/10/21 11/10/21 Unknown History 25 MG] Current Medications Generic Name Dose Route Start Last Admin Trade Name Freq PRN Reason Stop Dose Admin Albuterol Sulfate 2.5 mg 11/10/21 09:01 11/11/21 07:27 Albuterol Sulfate 2.5 Mg/3 Ml Neb 12/10/21 09:00 2.5 mg Q4H PRN PRN Administration SHORTNESS OF BREATH/WHEEZING Albuterol/Ipratropium 3 ml 11/10/21 13:00 11/13/21 07:55 Ipratropium/Albuterol Sulfate 3 Ml Ampul.[facility] 12/10/21 12:59 3 ml TIDRT NICK Administration Amlodipine Besylate 5 mg 11/10/21 11:00 11/12/21 11:17 Amlodipine Besylate 5 Mg Tablet PO 12/10/21 10:59 5 mg DAILY NICK Administration Bumetanide 2 mg 11/12/21 10:00 11/12/21 22:03 Bumetanide 0.25 Mg/Ml 4ml Vial IV 12/12/21 09:59 2 mg BID NICK Administration Methylprednisolone Sodium 0 mg 11/12/21 18:00 11/13/21 06:36 Succinate 60 mg/ Sterile Water IV 12/12/21 17:59 60 mg 2 ml Q12H NICK Administration Docusate Sodium 100 mg 11/11/21 17:51 Docusate Sodium 100 Mg Capsule PO 12/11/21 17:50 BIDPRN PRN CONSTIPATION Glipizide 10 mg 11/10/21 11:00 11/13/21 08:00 Glipizide 5 Mg Tablet PO 12/10/21 10:59 10 mg BIDWM NICK Administration Ceftriaxone Sodium/Dextrose 1 g in 50 mls @ 100 mls/hr 11/10/21 22:00 11/12/21 22:03 Rocephin 1 Gm-D5w 50 Ml Bag IV 11/13/21 21:59 100 mls/hr Q24H22 NICK Administration Azithromycin 500 mg in 250 mls @ 250 mls/hr 11/10/21 22:00 11/12/21 23:07 Zithromax 500 Mg/ 250 Ml Nacl Premix IV 12/10/21 21:59 250 mls/hr Q24H22 NICK Administration Insulin Human Regular 0 unit 11/10/21 10:00 11/12/21 22:16 Insulin Regular, Human 1 Unit SQ 12/10/21 09:59 5 unit UD PRN Administration Loratadine 10 mg 11/12/21 19:06 11/13/21 08:01 Loratadine 10 Mg Tablet PO 12/12/21 19:05 10 mg DAILY PRN PRN Administration ALLERGIES Metformin HCl 500 mg 11/10/21 11:00 11/13/21 08:00 Metformin Hcl 500 Mg Tablet PO 12/10/21 10:59 500 mg BIDWM NICK Administration Metoprolol Succinate 100 mg 11/10/21 11:00 11/12/21 11:16 Metoprolol Succinate 100 Mg Tablet.Sa PO 12/10/21 10:59 100 mg DAILY NICK Administration Miscellaneous Information 1 each 11/10/21 17:45 Medication Intervention 1 Each Each 12/10/21 17:44 .RN TO CHECK NICK Potassium Chloride 20 meq 11/10/21 11:00 11/12/21 11:15 Potassium Chloride Tab 10 Meq Tab PO 12/10/21 10:59 20 meq DAILY NICK Administration Fluticasone/Salmeterol 2 puff 11/10/21 07:00 11/13/21 07:54 Fluticasone/Salmeterol 115/21 - 120 Puff Common Canister IH 12/10/21 06:59 2 puff BIDRT NICK Administration Simvastatin 10 mg 11/10/21 22:00 11/12/21 22:03 Simvastatin 10 Mg Tablet PO 12/10/21 21:59 10 mg HS NICK Administration Spironolactone 25 mg 11/10/21 11:00 11/12/21 11:17 Spironolactone 25 Mg Tablet PO 12/10/21 10:59 25 mg DAILY NICK Administration Discontinued Medications Generic Name Dose Route Start Last Admin Trade Name Freq PRN Reason Stop Dose Admin Albuterol/Ipratropium Confirm 11/09/21 20:57 Ipratropium/Albuterol Sulfate 3 Ml Ampul.Neb Administered 11/09/21 20:58 Dose 3 ml IH .STK-MED ONE Albuterol/Ipratropium 3 ml 11/09/21 21:00 11/09/21 21:01 Ipratropium/Albuterol Sulfate 3 Ml Ampul.Neb IH 11/09/21 21:01 3 ml STAT ONE Administration Albuterol/Ipratropium 3 ml 11/10/21 03:00 11/10/21 07:23 Ipratropium/Albuterol Sulfate 3 Ml Ampul.Neb 12/10/21 02:59 3 ml Q4HRT NICK Administration Bumetanide 2 mg 11/10/21 11:00 11/12/21 00:29 Bumetanide 1 Mg Tablet PO 12/10/21 10:59 2 mg BID NICK Administration Methylprednisolone Sodium 0 mg 11/09/21 21:06 11/09/21 21:15 Succinate 125 mg/ Sterile IV 11/09/21 21:07 125 mg Water 2 ml STAT ONE Administration Methylprednisolone Sodium 0 mg 11/10/21 00:44 11/12/21 06:36 Succinate 60 mg/ Sterile Water IV 12/10/21 00:43 60 mg 2 ml Q6HT NICK Administration Furosemide 40 mg 11/09/21 21:45 11/09/21 21:52 Furosemide 40 Mg/4 Ml Vial IV 11/09/21 21:46 40 mg STAT ONE Administration Furosemide Confirm 11/09/21 21:50 Furosemide 40 Mg/4 Ml Vial Administered 11/09/21 21:51 Dose 40 mg .ROUTE .STK-MED ONE Furosemide 40 mg 11/10/21 10:00 11/11/21 09:32 Furosemide 40 Mg/4 Ml Vial IV 12/10/21 09:59 40 mg DAILY NICK Administration Ceftriaxone Sodium/Dextrose 2 g in 50 mls @ 100 mls/hr 11/09/21 21:44 11/09/21 22:30 Rocephin 2 Gm-D5w 50ml Bag IV 11/09/21 22:13 Infused STAT STA Infusion Azithromycin 500 mg in 250 mls @ 250 mls/hr 11/09/21 21:44 11/09/21 23:48 Zithromax 500 Mg/ 250 Ml Nacl Premix IV 11/09/21 22:43 Infused STAT STA Infusion Ceftriaxone Sodium/Dextrose Confirm 11/09/21 21:50 Rocephin 2 Gm-D5w 50ml Bag Administered 11/09/21 21:51 Dose 2 g in 50 mls @ ud IV .[facility] ONE Azithromycin Confirm 11/09/21 22:27 Zithromax 500 Mg/ 250 Ml Nacl Premix Administered 11/09/21 22:28 Dose 500 mg in 250 mls @ ud IV .[facility] ONE Insulin Human Regular 1 unit 11/10/21 09:52 Insulin Regular, Human 1 Unit IJ 12/10/21 09:51 UD PRN HYPERGLYCEMIA Methylprednisolone Sodium Succinate Confirm 11/09/21 21:13 Methylprednis Sod Succ 125 Mg/2 Ml Vial Administered 11/09/21 21:14 Dose 125 mg .ROUTE .[facility] ONE Methylprednisolone Sodium Succinate Confirm 11/10/21 05:44 Methylprednis Sod Succ 125 Mg/2 Ml Vial Administered 11/10/21 05:45 Dose 125 mg .ROUTE .[facility] ONE Methylprednisolone Sodium Succinate Confirm 11/11/21 00:18 Methylprednis Sod Succ 125 Mg/2 Ml Vial Administered 11/11/21 00:19 Dose 125 mg .ROUTE .[facility] ONE Methylprednisolone Sodium Succinate Confirm 11/11/21 06:31 Methylprednis Sod Succ 125 Mg/2 Ml Vial Administered 11/11/21 06:32 Dose 125 mg .ROUTE .[facility] ONE Methylprednisolone Sodium Succinate Confirm 11/11/21 23:46 Methylprednis Sod Succ 125 Mg/2 Ml Vial Administered 11/11/21 23:47 Dose 125 mg .ROUTE .[facility] ONE Methylprednisolone Sodium Succinate Confirm 11/12/21 06:24 Methylprednis Sod Succ 125 Mg/2 Ml Vial Administered 11/12/21 06:25 Dose 125 mg .ROUTE .[facility] ONE Methylprednisolone Sodium Succinate Confirm 11/12/21 17:27 Methylprednis Sod Succ 125 Mg/2 Ml Vial Administered 11/12/21 17:28 Dose 125 mg .ROUTE .[facility] ONE Methylprednisolone Sodium Succinate Confirm 11/13/21 06:17 Methylprednis Sod Succ 125 Mg/2 Ml Vial Administered 11/13/21 06:18 Dose 125 mg .ROUTE .[facility] ONE Miscellaneous Information 1 each 11/10/21 10:15 Medication Intervention 1 Each Each 12/10/21 10:14 .RN TO CHECK NICK Potassium Chloride 20 meq 11/10/21 10:00 Potassium Chloride Tab 10 Meq Tab PO 12/10/21 09:59 DAILY NICK Sterile Water Confirm 11/09/21 21:13 Water For Injection,Sterile 10 Ml Vial Administered 11/09/21 21:14 Dose 10 ml IJ .STK-MED ONE Sterile Water Confirm 11/10/21 05:47 Water For Injection,Sterile 10 Ml Vial Administered 11/10/21 05:48 Dose 10 ml IJ .STK-MED ONE Intake & Output (Last 24 hours) 11/10/21 11/11/21 11/12/21 11/13/21 11:59 11:59 11:59 11:59 Intake Total 1020 1451 3020 1420 Output Total 700 4050 1200 1850 Balance 320 -2599 1820 -430 Weight 125.5 kg 128.3 kg 128.7 kg Laboratory Results (Last 24 hours) 11/13/21 11/12/21 11/12/21 07:46 20:38 15:44 Anion Gap POC Glucometer 126 H 236 H 244 H Slides for Path Review 11/12/21 11/12/21 11/12/21 11:13 06:08 06:08 Anion Gap 10.8 POC Glucometer 200 H Slides for Path Review YES Orders (Last 24 hours) Category Date Time Status POCT GLUCOSE Stat Lab 11/12/21 11:13 Completed POCT GLUCOSE Stat Lab 11/12/21 15:44 Completed POCT GLUCOSE Stat Lab 11/12/21 20:38 Completed POCT GLUCOSE Stat Lab 11/13/21 07:46 Completed Bumetanide 1 mg [Bumex 1 mg] Med 11/12/21 10:00 Active 2 mg IV BID Loratadine 10 mg [Claritin 10 mg] Med 11/12/21 19:06 Active 10 mg PO DAILY PRN PRN Methylprednis Sod Succ 125 mg* [solu-MEDROL] Med 11/12/21 17:27 Discontinued 125 mg .ROUTE .STK-MED ONE Methylprednis Sod Succ 125 mg* [solu-MEDROL] Med 11/13/21 06:17 Discontinued 125 mg .ROUTE .STK-MED ONE Methylprednis Sod Succ 125 mg* [solu-MEDROL] 60 mg Med 11/12/21 18:00 Active Water For Injection,Sterile [Sterile H2O 10 ml] 2 ml IV Q12H Code(s): I50.9 - HEART FAILURE, UNSPECIFIED (2) COPD exacerbation Current Visit: Yes Status: Acute Code(s): J44.1 - CHRONIC OBSTRUCTIVE PULMONARY DISEASE W (ACUTE) EXACERBATION (3) CAD (coronary artery disease) Current Visit: No Status: Chronic Qualifiers: Coronary Disease-Associated Artery/Lesion type: [place] artery [place] vs. transplanted heart: [place] heart Associated angina: without angina Qualified Code(s): I25.10 - Atherosclerotic heart disease of [place] coronary artery without angina pectoris Code(s): I25.10 - ATHSCL HEART DISEASE OF COUNCIL CORONARY ARTERY W/O ANG PCTRS (4) COPD (chronic obstructive pulmonary disease) Current Visit: Yes Status: Chronic Qualifiers: COPD type: COPD with acute exacerbation Qualified Code(s): J44.1 - Chronic obstructive pulmonary disease with (acute) exacerbation (5) Chronic hypoxemic respiratory failure Current Visit: Yes Status: Chronic (6) HTN (hypertension) Current Visit: Yes Status: Chronic Qualifiers: Hypertension type: primary hypertension Code(s): I10 - ESSENTIAL (PRIMARY) HYPERTENSION
[2021-11-13] MEDS: Klor Con PO SCH (11:41)
[2021-11-13] MEDS: NORVASC 5 MG PO SCH (11:42)
[2021-11-13] MEDS: Aldactone 25 MG PO SCH (11:42)
[2021-11-13] MEDS: BUMEX 1 MG IV SCH ×2 (11:43→21:34)
[2021-11-13] MEDS: Toprol Xl 100 MG PO SCH (11:50)
[2021-11-13] MEDS: HUMULIN R SQ PRN ×2 (12:22→21:52)
[2021-11-13] MEDS: CORTISPORIN EAR DROPS 10 ML SUSPENSION OT SCH ×2 (17:24→21:08)
[2021-11-13] MEDS: ROCEPHIN 1 Gm-D5w 50 ml Bag** 1 G/50 ML IVPB IV SCH (21:08)
[2021-11-13] MEDS: Zithromax 500 MG/ 250 ML NaCl Premix 500 MG/250 ML IVPB IV SCH (21:41)
[2021-11-13] MEDS: Zocor 10MG PO SCH (21:41)
[2021-11-14] MEDS: DUONEB 0.5-3 MG/3 ml Neb IH SCH ×2 (08:16→11:45)
--- NOTE | 2021-11-14 08:40 | XRAY ---
Indication: Follow-up pneumonia. Comparison: One day earlier. PA/lateral chest continues to demonstrate cardiomegaly, central vascular prominence, bilateral effusions left greater than right, and left hilar airspace opacity grossly unchanged over the last 3 exams. No new cardiopulmonary abnormalities. Perhaps CT chest with contrast may yield further information.
[2021-11-14] MEDS: Aldactone 25 MG PO SCH (09:03)
[2021-11-14] MEDS: Klor Con PO SCH (09:03)
[2021-11-14] MEDS: NORVASC 5 MG PO SCH (09:03)
[2021-11-14] MEDS: Glucophage 500 MG PO SCH (09:03)
[2021-11-14] MEDS: Glucotrol 5 MG PO SCH (09:03)
[2021-11-14] MEDS: Toprol Xl 100 MG PO SCH (09:03)
[2021-11-14] MEDS: CORTISPORIN EAR DROPS 10 ML SUSPENSION OT SCH (09:04)
[2021-11-14] MEDS: Advair Hfa 115/21 Common canister IH SCH (09:29)
[2021-11-14 11:49] VITALS: PULSE 81
[2021-11-14 12:23] VITALS: BP 175/89
[2021-11-14 12:33] VITALS: O2SAT 93
== END 2021-11-14 14:58 | disposition home health service (06) | DRG 291 ==
LOC: ED 20:49 → MED SURG 11-10 00:43 → OBSVTOIN 11-10 08:58
PROVIDERS: ADMIT Family Medicine; ATTEND Family Medicine
DX: I11.0 Hypertensive heart disease with heart failure (principal); I50.43 Acute on chronic combined systolic (congestive) and diastolic (congestive) heart failure; J44.1 Chronic obstructive pulmonary disease with (acute) exacerbation; J96.11 Chronic respiratory failure with hypoxia; I25.10 Atherosclerotic heart disease of native coronary artery without angina pectoris; E11.9 Type 2 diabetes mellitus without complications; R60.9 Edema, unspecified; Z79.899 Other long term (current) drug therapy; Z20.828 Contact with and (suspected) exposure to other viral communicable diseases; Z99.81 Dependence on supplemental oxygen
CPT/HCPCS: 0241U; 36000; 36415; 71045; 71046; 80048; 80053; 81015; 82947; 83036; 83880; 84132; 84145; 84484; 85025; 85027; 87040; 93005; 93041; 94640; 94667; 94668; 94760; 94762; 96360; 96361; 96374; 96375; 99285; J0456; J0696; J1815; J1940; J2930; J7609; A9270-GY

== ENCOUNTER 2021-12-07 18:44 | Emergency (ER) | payer MEDICARE, OTHER ==
[2021-12-07] MEDS ORDERED: DUONEB 0.5-3 MG/3 ml Neb IH ONE ×4 (18:45→19:40)
[2021-12-07] MEDS ORDERED: solu-MEDROL 125 MG, Sterile H2O 10 ml 2 ML IV ONE ×2 (19:35)
[2021-12-07] MEDS ORDERED: Sterile H2O 10 ml IJ ONE (19:49)
[2021-12-07] MEDS ORDERED: solu-MEDROL ONE (19:50)
--- NOTE | 2021-12-07 19:59 | ERPHSYRPT ---
- History of Present Illness Time Seen by Provider: 12/07/21 18:46 Historian: patient Exam Limitations: no limitations Patient Subjective Stated Complaint: pt here for increase sob for a few days, states has not felt well since had pnuemonia last month, pt wears o2 at 3-4 l nc at home Triage Nursing Assessment: pt arrived per wc anxuois, resp labored, o2 at 4 l nc for sat of 89%, skin w/d/p, refuses to get in bed or undressed, chest diminished breath sounds through out, edema to lower legs Allergies/Adverse Reactions: No Known Drug Allergies Allergy (Verified 12/07/21 18:46) Home Medications: Amlodipine Besylate 5 mg [Norvasc 5 mg] 5 mg PO DAILY 01/08/21 [History] Atorvastatin Calcium 10 mg PO HS 01/08/21 [History] Bumetanide 2 mg PO BID 01/08/21 [History] Fluticasone/Umeclidin/Vilanter [Trelegy Ellipta 100-62.5-25] 1 puff IH DAILY 01/08/21 [History] Metoprolol Succinate 50 mg [Toprol Xl 50 MG] 100 mg PO DAILY 01/08/21 [History] Sildenafil Citrate [Sildenafil] 20 mg PO DAILY 01/08/21 [History] Glipizide 5 mg [Glucotrol 5 MG] 10 mg PO BID 11/10/21 [History] Spironolactone 25 mg [Aldactone 25 MG] 25 mg PO DAILY 11/10/21 [History] Hx Tetanus, Diphtheria Vaccination/Date Given: Yes Hx Influenza Vaccination/Date Given: No Hx Pneumococcal Vaccination/Date Given: No Immunizations Up to Date: Yes Travel Risk - International Travel Have you traveled outside of the country in past 3 weeks: No - Coronavirus Screening Are you exhibiting any of the following symptoms?: No Close contact with a COVID-19 positive Pt in past 14-21 Days: No - Vaccine Status Have you recieved a Covid-19 vaccination: No - Past Medical History Pertinent Past Medical History: Yes Neurological History: No Pertinent History ENT History: No Pertinent History Cardiac History: Congestive Heart Failure, Coronary Artery Disease, Hypertension, Myocardial Infarction (AR) Respiratory History: Asthma, CHF, COPD, Pneumonia Endocrine Medical History: Diabetes Type II Musculoskeletal History: Arthritis GI Medical History: Diverticulitis, GERD, Polyps History: Renal Disease Psycho-Social History: Anxiety, Depression Male Reproductive Disorders: No Pertinent History - Past Surgical History Past Surgical History: Yes Neuro Surgical History: No Pertinent History Cardiac: Cardiac Catheterization, Cardiac Stent Respiratory: No Pertinent History Gastrointestinal: No Pertinent History Genitourinary: No Pertinent History Musculoskeletal: No Pertinent History Male Surgical History: No Pertinent History Other Surgical History: 2 heart stents. c4-c5 fusion with plate and cadaver gill ne - Social History Smoking Status: Former smoker How long have you smoked: 50years Exposure to second hand smoke: No Drug Use: none Patient Lives Alone: No - Nursing Vital Signs Nursing Vital Signs: Initial Vital Signs Temperature 97.5 F 12/07/21 18:44 Pulse Rate 97 H 12/07/21 18:44 Respiratory Rate 26 H 12/07/21 18:44 Blood Pressure 145/74 12/07/21 18:44 O2 Sat by Pulse Oximetry 89 L 12/07/21 18:44 Pain Scale Pain Intensity 7 - Physical Exam SpO2: 93 Ordered Tests: Active Orders 24 hr Category Date Time Status Visual Lead STAT Care 12/07/21 19:35 Active EKG-ER Only STAT Care 12/07/21 19:35 Active IV Insertion STAT Care 12/07/21 19:35 Active Oxygen-ED Only Nasal Cannula 4 lpm Care 12/07/21 19:35 Active CHEST 1 VIEW (PORTABLE) Stat Exams 12/07/21 19:56 Taken BLOOD CULTURE Stat Lab 12/07/21 19:35 Ordered CBC W DIFF Stat Lab 12/07/21 19:35 Ordered CMP Stat Lab 12/07/21 19:35 Ordered Lactic Acid Stat Lab 12/07/21 19:35 Ordered MAGNESIUM Stat Lab 12/07/21 19:35 Ordered NT PRO BNP Stat Lab 12/07/21 19:35 Ordered TROPONIN Q4H Lab 12/07/21 19:45 Ordered TROPONIN Q4H Lab 12/07/21 23:45 Ordered TROPONIN Q4H Lab 12/08/21 03:45 Ordered Respiratory Therapy Assessment DAILY RT 12/07/21 18:53 Active Medication Summary Discontinued Medications Generic Name Dose Route Start Last Admin Trade Name Freq PRN Reason Stop Dose Admin Albuterol/Ipratropium 3 ml 12/07/21 18:45 12/07/21 18:56 Ipratropium/Albuterol Sulfate 3 Ml Ampul.Neb IH 12/07/21 18:46 3 ml STAT ONE Administration Albuterol/Ipratropium Confirm 12/07/21 18:51 Ipratropium/Albuterol Sulfate 3 Ml Ampul.Neb Administered 12/07/21 18:52 Dose 3 ml IH .STK-MED ONE Albuterol/Ipratropium 3 ml 12/07/21 19:35 12/07/21 19:42 Ipratropium/Albuterol Sulfate 3 Ml Ampul.Neb IH 12/07/21 19:36 3 ml STAT ONE Administration Albuterol/Ipratropium Confirm 12/07/21 19:40 Ipratropium/Albuterol Sulfate 3 Ml Ampul.Neb Administered 12/07/21 19:41 Dose 3 ml IH .STK-MED ONE Methylprednisolone Sodium 0 mg 12/07/21 19:35 12/07/21 19:50 Succinate 125 mg/ Sterile IV 12/07/21 19:36 125 mg Water 2 ml STAT ONE Administration Methylprednisolone Sodium Succinate Confirm 12/07/21 19:50 Methylprednis Sod Succ 125 Mg/2 Ml Vial Administered 12/07/21 19:51 Dose 125 mg .ROUTE .STK-MED ONE Sterile Water Confirm 12/07/21 19:49 Water For Injection,Sterile 10 Ml Vial Administered 12/07/21 19:50 Dose 10 ml IJ .STK-MED ONE - Departure Referrals: CHON LINCOLN [Primary Care Provider] - Follow up/PCP as directed
[2021-12-07 20:18] LABS: Absolute Neutrophil Ct (ANC) 4.24 x10^3/uL (1.4-6.9); Basophil (Absolute #) 0.02 x10^3/uL (0-0.4); Eosinophil % 1.3 % (0.00-5.0); Eosinophil (Absolute #) 0.08 x10^3/uL (0-0.5); Hematocrit 40.4 % (42-50); Hemoglobin 11.2 g/dL (12.5-18.0); Lymphocyte (Absolute #) 0.78 x10^3/uL (1.0-4.6); Lymphocytes % 12.7 % (24.0-44.0); Mean Cell Volume 91.2 fL (78-100); Mean Corpuscular Hemoglobin 25.3 pg (26-32); Mean Corpuscular Hgb Concent. 27.7 g/dL (32-36); Mean Platelet Volume 9.8 fL (7.5-11.0); Monocyte (Absolute #) 0.89 x10^3/uL (0.0-1.3); Monocytes % 14.5 % (0.0-12.0); Neutrophil % 69.2 % (36.0-66.0); Platelet Count 204 x10^3/uL (150-450); Red Blood Count 4.43 x10^6/uL (4.1-5.6); Red Cell Distribution Width 17.1 % (11.5-14.0); White Blood Count 6.1 x10^3/uL (4.0-10.5)
[2021-12-07 20:57] LABS: ALBUMIN 3.5 g/dL (3.5-5.0); BILIRUBIN,TOTAL 0.3 mg/dL (0.2-1.3); Calcium 8.8 mg/dL (8.4-10.2); Creatinine 1 1.41 mg/dL (0.66-1.25); EST GLOMERULAR FILTRATION RATE 52.8 ML/MIN; MAGNESIUM 1.9 mg/dL (1.6-2.3); Potassium 4.5 mmol/L (3.5-5.1); Total Protein 6.7 g/dL (6.3-8.2)
[2021-12-07 20:59] LABS: INFLUENZA A NEGATIVE (NEGATIVE); INFLUENZA B NEGATIVE (NEGATIVE); RESPIRATORY SYNCTIAL VIRUS NEGATIVE (Negative); SARS-CoV-2 Xpert Express NEGATIVE (NEGATIVE)
[2021-12-07 21:02] LABS: ANION GAP 9.5 MEQ/L (5-15)
--- NOTE | 2021-12-07 22:06 | ERPHSYRPT ---
- History of Present Illness Time Seen by Provider: 12/07/21 18:46 Source: patient Exam Limitations: no limitations Patient Subjective Stated Complaint: pt here for increase sob for a few days, states has not felt well since had pnuemonia last month, pt wears o2 at 3-4 l nc at home Triage Nursing Assessment: pt arrived per wc anxuois, resp labored, o2 at 4 l nc for sat of 89%, skin w/d/p, refuses to get in bed or undressed, chest diminished breath sounds through out, edema to lower legs Physician History: 71 years old male with history of hypertension, hyperlipidemia, diabetes mellitus, COPD with chronic respiratory failure on 3-4 L oxygen, congestive heart failure, coronary artery disease status post stenting, who was recently admitted for bilateral pneumonia, reports increasing shortness of breath gradually and for the last 3 days got to the point that he can hardly take couple of steps and now feeling short of breath even at resting. On presentation patient oxygen saturation is around 88/89% on 4 L . Also reports some increased bilateral lower extremity swelling despite taking Bumex. No chest pain but tightness. No fever or chills reported. Timing/Duration: day(s) (3), constant, gradual onset, worse Activities at Onset: activity, rest Severity of Dyspnea-Max: moderate Severity of Dyspnea-Current: moderate Possible Cause: frequent episodes Modifying Factors: Improves With: oxygen, rest. Worsens With: coughing, exertion Associated Symptoms: cough, chest pain/discomfort, heaviness, productive cough, tightness, No fever Allergies/Adverse Reactions: No Known Drug Allergies Allergy (Verified 12/07/21 18:46) Home Medications: Amlodipine Besylate 5 mg [Norvasc 5 mg] 5 mg PO DAILY 01/08/21 [History] Atorvastatin Calcium 10 mg PO HS 01/08/21 [History] Bumetanide 2 mg PO BID 01/08/21 [History] Fluticasone/Umeclidin/Vilanter [Trelegy Ellipta 100-62.5-25] 1 puff IH DAILY 01/08/21 [History] Metoprolol Succinate 50 mg [Toprol Xl 50 MG] 100 mg PO DAILY 01/08/21 [History] Sildenafil Citrate [Sildenafil] 20 mg PO DAILY 01/08/21 [History] Glipizide 5 mg [Glucotrol 5 MG] 10 mg PO BID 11/10/21 [History] Spironolactone 25 mg [Aldactone 25 MG] 25 mg PO DAILY 11/10/21 [History] Hx Tetanus, Diphtheria Vaccination/Date Given: Yes Hx Influenza Vaccination/Date Given: No Hx Pneumococcal Vaccination/Date Given: No Immunizations Up to Date: Yes Travel Risk - International Travel Have you traveled outside of the country in past 3 weeks: No - Coronavirus Screening Are you exhibiting any of the following symptoms?: No Close contact with a COVID-19 positive Pt in past 14-21 Days: No - Vaccine Status Have you recieved a Covid-19 vaccination: No - Review of Systems Constitutional: Fatigue, Weakness Eyes: No Symptoms Ears, Nose, & Throat: No Symptoms Respiratory: Cough, Cyanosis, Dyspnea, Dyspnea on Exertion ([place]), Wheezing Cardiac: Edema Abdominal/Gastrointestinal: No Symptoms Genitourinary Symptoms: No Symptoms Musculoskeletal: No Symptoms Skin: No Symptoms Neurological: No Symptoms Psychological: No Symptoms Endocrine: No Symptoms Hematologic/Lymphatic: No Symptoms Immunological/Allergic: No Symptoms - Past Medical History Pertinent Past Medical History: Yes Neurological History: No Pertinent History ENT History: No Pertinent History Cardiac History: Congestive Heart Failure, Coronary Artery Disease, Hypertension, Myocardial Infarction ([place]) Respiratory History: Asthma, CHF, COPD, Pneumonia Endocrine Medical History: Diabetes Type II Musculoskeletal History: Arthritis GI Medical History: Diverticulitis, GERD, Polyps History: Renal Disease Psycho-Social History: Anxiety, Depression Male Reproductive Disorders: No Pertinent History - Past Surgical History Past Surgical History: Yes Neuro Surgical History: No Pertinent History Cardiac: Cardiac Catheterization, Cardiac Stent Respiratory: No Pertinent History Gastrointestinal: No Pertinent History Genitourinary: No Pertinent History Musculoskeletal: No Pertinent History Male Surgical History: No Pertinent History Other Surgical History: 2 heart stents. c4-c5 fusion with plate and cadaver bone - Social History Smoking Status: Former smoker How long have you smoked: 50years Exposure to second hand smoke: No Drug Use: none Patient Lives Alone: No - Nursing Vital Signs Nursing Vital Signs: Initial Vital Signs Temperature 97.5 F 12/07/21 18:44 Pulse Rate 97 H 12/07/21 18:44 Respiratory Rate 26 H 12/07/21 18:44 Blood Pressure 145/74 12/07/21 18:44 O2 Sat by Pulse Oximetry 89 L 12/07/21 18:44 Pain Scale Pain Intensity 6 - Physical Exam General Appearance: no apparent distress, alert Eye Exam: PERRL/EOMI Ears, Nose, Throat Exam: hearing grossly normal, normal ENT inspection, normal pharynx Neck Exam: normal inspection, full range of motion Respiratory Exam: diminished breath sounds, crackles/rales, rhonchi, wheezing Cardiovascular/Chest Exam: normal heart sounds, regular rate/rhythm, edema Abdominal/Gastrointestinal Exam: soft, normal bowel sounds Extremity Exam: non-tender, normal range of motion Neurologic Exam: alert, oriented x 3, cooperative, breaker hand II-XII nml as tested Skin Exam: normal color SpO2 Interpretation: hypoxic, O2 applied SpO2: 92 O2 Delivery: Nasal Cannula - Course EKG Interpreted by Me: RATE (93), NORMAL AXIS, NORMAL INTERVALS, Q-wave, Non- specific ST Changes Ordered Tests: Medication Summary Discontinued Medications Generic Name Dose Route Start Last Admin Trade Name Daniloq PRN Reason Stop Dose Admin Albuterol/Ipratropium 3 ml 12/07/21 18:45 12/07/21 18:56 Ipratropium/Albuterol Sulfate 3 Ml Ampul.Neb IH 12/07/21 18:46 3 ml STAT ONE Administration Albuterol/Ipratropium Confirm 12/07/21 18:51 Ipratropium/Albuterol Sulfate 3 Ml Ampul.Neb Administered 12/07/21 18:52 Dose 3 ml IH .STK-MED ONE Albuterol/Ipratropium 3 ml 12/07/21 19:35 12/07/21 19:42 Ipratropium/Albuterol Sulfate 3 Ml Ampul.Neb IH 12/07/21 19:36 3 ml STAT ONE Administration Albuterol/Ipratropium Confirm 12/07/21 19:40 Ipratropium/Albuterol Sulfate 3 Ml Ampul.Neb Administered 12/07/21 19:41 Dose 3 ml IH .STK-MED ONE Methylprednisolone Sodium 0 mg 12/07/21 19:35 12/07/21 19:50 Succinate 125 mg/ Sterile IV 12/07/21 19:36 125 mg Water 2 ml STAT ONE Administration Methylprednisolone Sodium Succinate Confirm 12/07/21 19:50 Methylprednis Sod Succ 125 Mg/2 Ml Vial Administered 12/07/21 19:51 Dose 125 mg .ROUTE .[employer] ONE Sterile Water Confirm 12/07/21 19:49 Water For Injection,Sterile 10 Ml Vial Administered 12/07/21 19:50 Dose 10 ml IJ .STK-MED ONE Lab/Rad Data: Laboratory Result Diagrams 12/07/21 19:45 12/07/21 19:45 Laboratory Results 12/07/21 12/07/21 12/07/21 Range/Units 22:53 22:27 20:05 WBC (4.0-10.5) x10^3/uL RBC (4.1-5.6) x10^6/uL Hgb (12.5-18.0) g/dL Hct (42-50) % MCV (78-100) fL MCH (26-32) pg MCHC (32-36) g/dL RDW (11.5-14.0) % Plt Count (150-450) x10^3/uL MPV (7.5-11.0) fL Gran % (36.0-66.0) % Immature Gran % (Auto) (0.00-0.4) % Nucleat RBC Rel Count (0.00-0.1) % Eos # (Auto) (0-0.5) x10^3/uL Immature Gran # (Auto) (0.00-0.03) x10^3u/L Absolute Lymphs (auto) (1.0-4.6) x10^3/uL Absolute Monos (auto) (0.0-1.3) x10^3/uL Absolute Nucleated RBC (0.00-0.01) x10^3u/L Lymphocytes % (24.0-44.0) % Monocytes % (0.0-12.0) % Eosinophils % (0.00-5.0) % Basophils % (0.0-0.4) % Absolute Granulocytes (1.4-6.9) x10^3/uL Basophils # (0-0.4) x10^3/uL Puncture Site RIGHT RADIAL pCO2 64 H* (35-45) mmHg pO2 56 L (75-100) mmHg Base Excess 14.0 H (-2.0-2.0) O2 Saturation 86.4 L (94-100) g/dF ABG pH 7.42 (7.35-7.45) ABG HCO3 41.5 H* (22-28) ABG O2 Sat (Measured) 91.6 L (95-100) % Adrian Test YES A-a Gradient 292 a/A Ratio 0.16 Hemoglobin 12.4 Carboxyhemoglobin 5.2 (0.0-6.9) % THgb Methemoglobin 0.5 L (1.4-1.5) % Temperature 37.0 C POC O2 Flow Rate 60 % Sodium (137-145) mmol/L Potassium 4.9 (3.5-5.1) mmol/L Chloride (98-107) mmol/L Carbon Dioxide (22-30) mmol/L Anion Gap (5-15) MEQ/L BUN (9-20) mg/dL Creatinine (0.66-1.25) mg/dL Estimated GFR ML/MIN Glucose (74-106) mg/dL Lactic Acid (0.4-2.0) Calcium (8.4-10.2) mg/dL Magnesium (1.6-2.3) mg/dL Total Bilirubin (0.2-1.3) mg/dL AST (17-59) U/L ALT (0-50) U/L Alkaline Phosphatase (38-126) U/L Troponin I 0.018 (0.000-0.034) ng/mL NT-Pro-B Natriuret Pep (0-900) pg/mL Serum Total Protein (6.3-8.2) g/dL Albumin (3.5-5.0) g/dL Influenza Type A Ag NEGATIVE (NEGATIVE) Influenza Type B Ag NEGATIVE (NEGATIVE) RSV (PCR) NEGATIVE (Negative) SARS-CoV-2 (PCR) NEGATIVE (NEGATIVE) Slides for Path Review 12/07/21 12/07/21 12/07/21 Range/Units 19:49 19:45 19:45 WBC (4.0-10.5) x10^3/uL RBC (4.1-5.6) x10^6/uL Hgb (12.5-18.0) g/dL Hct (42-50) % MCV (78-100) fL MCH (26-32) pg MCHC (32-36) g/dL RDW (11.5-14.0) % Plt Count (150-450) x10^3/uL MPV (7.5-11.0) fL Gran % (36.0-66.0) % Immature Gran % (Auto) (0.00-0.4) % Nucleat RBC Rel Count (0.00-0.1) % Eos # (Auto) (0-0.5) x10^3/uL Immature Gran # (Auto) (0.00-0.03) x10^3u/L Absolute Lymphs (auto) (1.0-4.6) x10^3/uL Absolute Monos (auto) (0.0-1.3) x10^3/uL Absolute Nucleated RBC (0.00-0.01) x10^3u/L Lymphocytes % (24.0-44.0) % Monocytes % (0.0-12.0) % Eosinophils % (0.00-5.0) % Basophils % (0.0-0.4) % Absolute Granulocytes (1.4-6.9) x10^3/uL Basophils # (0-0.4) x10^3/uL Puncture Site pCO2 (35-45) mmHg pO2 (75-100) mmHg Base Excess (-2.0-2.0) O2 Saturation (94-100) g/dF ABG pH (7.35-7.45) ABG HCO3 (22-28) ABG O2 Sat (Measured) (95-100) % Adrian Test A-a Gradient a/A Ratio Hemoglobin Carboxyhemoglobin (0.0-6.9) % THgb Methemoglobin (1.4-1.5) % Temperature C POC O2 Flow Rate % Sodium 139 (137-145) mmol/L Potassium 4.5 (3.5-5.1) mmol/L Chloride 95 L (98-107) mmol/L Carbon Dioxide 39 H (22-30) mmol/L Anion Gap 9.5 (5-15) MEQ/L BUN 30 H (9-20) mg/dL Creatinine 1.41 H (0.66-1.25) mg/dL Estimated GFR 52.8 ML/MIN Glucose 119 H (74-106) mg/dL Lactic Acid 1.4 (0.4-2.0) Calcium 8.8 (8.4-10.2) mg/dL Magnesium 1.9 (1.6-2.3) mg/dL Total Bilirubin 0.30 (0.2-1.3) mg/dL AST 33 (17-59) U/L ALT 40 (0-50) U/L Alkaline Phosphatase 88 (38-126) U/L Troponin I 0.017 (0.000-0.034) ng/mL NT-Pro-B Natriuret Pep 525 (0-900) pg/mL Serum Total Protein 6.7 (6.3-8.2) g/dL Albumin 3.5 (3.5-5.0) g/dL Influenza Type A Ag (NEGATIVE) Influenza Type B Ag (NEGATIVE) RSV (PCR) (Negative) SARS-CoV-2 (PCR) (NEGATIVE) Slides for Path Review 12/07/21 Range/Units 19:45 WBC 6.1 (4.0-10.5) x10^3/uL RBC 4.43 (4.1-5.6) x10^6/uL Hgb 11.2 L (12.5-18.0) g/dL Hct 40.4 L (42-50) % MCV 91.2 (78-100) fL MCH 25.3 L (26-32) pg MCHC 27.7 L (32-36) g/dL RDW 17.1 H (11.5-14.0) % Plt Count 204 (150-450) x10^3/uL MPV 9.8 (7.5-11.0) fL Gran % 69.2 H (36.0-66.0) % Immature Gran % (Auto) 2.0 H (0.00-0.4) % Nucleat RBC Rel Count 0.0 (0.00-0.1) % Eos # (Auto) 0.08 (0-0.5) x10^3/uL Immature Gran # (Auto) 0.12 H (0.00-0.03) x10^3u/L Absolute Lymphs (auto) 0.78 L (1.0-4.6) x10^3/uL Absolute Monos (auto) 0.89 (0.0-1.3) x10^3/uL Absolute Nucleated RBC 0.00 (0.00-0.01) x10^3u/L Lymphocytes % 12.7 L (24.0-44.0) % Monocytes % 14.5 H (0.0-12.0) % Eosinophils % 1.3 (0.00-5.0) % Basophils % 0.3 (0.0-0.4) % Absolute Granulocytes 4.24 (1.4-6.9) x10^3/uL Basophils # 0.02 (0-0.4) x10^3/uL Puncture Site pCO2 (35-45) mmHg pO2 (75-100) mmHg Base Excess (-2.0-2.0) O2 Saturation (94-100) g/dF ABG pH (7.35-7.45) ABG HCO3 (22-28) ABG O2 Sat (Measured) (95-100) % Adrian Test A-a Gradient a/A Ratio Hemoglobin Carboxyhemoglobin (0.0-6.9) % THgb Methemoglobin (1.4-1.5) % Temperature C POC O2 Flow Rate % Sodium (137-145) mmol/L Potassium (3.5-5.1) mmol/L Chloride (98-107) mmol/L Carbon Dioxide (22-30) mmol/L Anion Gap (5-15) MEQ/L BUN (9-20) mg/dL Creatinine (0.66-1.25) mg/dL Estimated GFR ML/MIN Glucose (74-106) mg/dL Lactic Acid (0.4-2.0) Calcium (8.4-10.2) mg/dL Magnesium (1.6-2.3) mg/dL Total Bilirubin (0.2-1.3) mg/dL AST (17-59) U/L ALT (0-50) U/L Alkaline Phosphatase (38-126) U/L Troponin I (0.000-0.034) ng/mL NT-Pro-B Natriuret Pep (0-900) pg/mL Serum Total Protein (6.3-8.2) g/dL Albumin (3.5-5.0) g/dL Influenza Type A Ag (NEGATIVE) Influenza Type B Ag (NEGATIVE) RSV (PCR) (Negative) SARS-CoV-2 (PCR) (NEGATIVE) Slides for Path Review YES - Progress Progress: re-examined Air Movement: fair Progress Note: 12/07/21 22:32 71 years old is evaluated for increasing shortness of breath despite being on 3 to 4 L oxygen. Patient is given DuoNeb x2, Solu-Medrol but still having shortness of breath and needing oxygen up to 10 L with sats around 94%. Chest x-ray showed bilateral opacities consistent with pneumonia and given a dose of Rocephin and Zithromax. Work-up showed normal white count, negative initial troponin. Discussed with Dr. Sanchez, recommended obtaining ABG and if patient does not have much improvement in condition, transfer to facility with pulmonology and cardiology services. Plan discussed with patient and he wants to go to [facility]. 12/07/21 23:[address] Lu at [facility], reviewed history, work-up and patient is excepted for transfer. Blood Culture(s) Obtained: Yes Antibiotics given: Yes Discussed with : David, Other Counseled pt/family regarding: lab results, diagnosis, rad results - Departure Departure Disposition: Transfer Clinical Impression: Chronic hypoxemic respiratory failure, COPD exacerbation, Bilateral pneumonia Condition: Fair Critical Care Time: Yes Critical Care Time(excluding separately billable procedures): Critical 30-74 mins Referrals: CHON LINCOLN [Primary Care Provider] - Follow up/PCP as directed Instructions: Chronic Obstructive Pulmonary Disease
[2021-12-07 22:41] LABS: A-aADO2 292; ABG HEMOGLOBIN 12.4; ABG POTASSIUM 4.9 (3.5-5.1); ARTERIAL BLD GAS O2 SATURATION 91.6 % (95-100); ARTERIAL BLOOD GAS FIO2 60 %; ARTERIAL BLOOD GAS PO2 56 mmHg (75-100); ARTERIAL BLOOD GAS pH 7.42 (7.35-7.45); CARBOXYHEMOGLOBIN 5.2 % THgb (0.0-6.9); HCO3- 41.5 (22-28); HGB O2 SAT 86.4 g/dF (94-100); Methhemoglobin 0.5 % (1.4-1.5)
[2021-12-07 22:42] LABS: ABG SITE RIGHT RADIAL; ALLEN TEST OK? YES; ARTERIAL BLOOD GAS PCO2 64 mmHg (35-45)
[2021-12-07 22:57] VITALS: BP 123/70
[2021-12-07 23:29] VITALS: PULSE 100
[2021-12-07 23:30] LABS: Slide Review 1 YES
--- NOTE | 2021-12-08 08:33 | XRAY ---
Indication: Short of breath. "Double pneumonia." Comparison: November 13, 2021 Portable chest again demonstrates cardiomegaly, central vascular prominence, and bilateral effusions slightly worsened on the right again favoring cardiac decompensation/CHF. Minimally worsening left perihilar airspace disease. Again chronic findings including right hilar chunky calcified nodes, osteopenia, and cervical fusion hardware.
[2021-12-10 15:28] VITALS: O2SAT 92
== END 2021-12-08 00:10 | disposition short-term general hospital (02) ==
LOC: ED 18:44
DX: J96.11 Chronic respiratory failure with hypoxia (principal); J44.1 Chronic obstructive pulmonary disease with (acute) exacerbation; J18.9 Pneumonia, unspecified organism; Z99.81 Dependence on supplemental oxygen; I11.0 Hypertensive heart disease with heart failure; I50.9 Heart failure, unspecified; E78.5 Hyperlipidemia, unspecified; E11.9 Type 2 diabetes mellitus without complications; Z79.84 Long term (current) use of oral hypoglycemic drugs; Z79.899 Other long term (current) drug therapy; Z28.310 Unvaccinated for COVID-19
CPT/HCPCS: 0241U; 36000; 36415; 36600; 71045; 80053; 82375; 82803; 83605; 83735; 83880; 84484; 85025; 87040; 93005; 93041; 94640; 96374; 99285; 99291; J2930; A9270-GY